=== PATIENT | male | born 1970 | race African-American/Black ===

== ENCOUNTER 2016-07-15 07:52 | Emergency (ER) | payer SELFPAY ==
[2016-07-15] MEDS ORDERED: HYDROCODONE/ACETAMINOPHEN 5-325 MG TABLET PO ONE (09:49)
[2016-07-15] MEDS ORDERED: MORPHINE SULFATE 10 MG/ML INJ IM ONE (09:53)
--- NOTE | 2016-07-15 09:54 | ER Document Report ---
ED General - General Chief Complaint: Breathing Difficulty Stated Complaint: HARD TO BREATH Mode of Arrival: Ambulatory Information source: Patient Notes: 46-year-old male presents with sudden right lower chest pain of one-day duration. Patient admits to shortness of breath difficulty taking a deep breath in. 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 Patient has had similar pains in the past due to work TRAVEL OUTSIDE OF THE [place] IN LAST 30 DAYS: No - HPI Onset: Just prior to arrival Onset/Duration: Sudden Quality of pain: No pain - Related Data Allergies/Adverse Reactions: fluoxetine HCl [From Prozac] Allergy (Verified 07/15/16 07:55) naproxen [Naproxen] Allergy (Verified 07/15/16 07:55) Past Medical History - Social History Smoking Status: Current Every Day Smoker Chew tobacco use (# tins/day): No Frequency of alcohol use: None Drug Abuse: None Family History: Arthritis, CAD, CVA, DM, Hyperlipidemia, Hypertension Patient has suicidal ideation: No Patient has homicidal ideation: No - Past Medical History Cardiac Medical History: Reports: Hx Hypercholesterolemia, Hx Hypertension Pulmonary Medical History: Denies: Hx Asthma, Hx Bronchitis, Hx COPD Neurological Medical History: Denies: Hx Cerebrovascular Accident Endocrine Medical History: Denies: Hx Diabetes Mellitus Type 2 GI Medical History: Denies: Hx Gastritis, Hx Gastroesophageal Reflux Disease Musculoskeltal Medical History: Reports Hx Arthritis, Reports Hx Muscle Spasm, Reports Hx Musculoskeletal Deformity, Reports Hx Musculoskeletal Trauma Psychiatric Medical History: Reports: Hx Depression Past Surgical History: Reports: Hx Orthopedic Surgery - L5-S1 fusion in Feb 2012. - Immunizations Immunizations up to date: Yes Hx Diphtheria, Pertussis, Tetanus Vaccination: Yes - last year Physical Exam - Vital signs Vitals: Temp Pulse Resp BP Pulse Ox 98.2 F 90 18 177/104 H 99 07/15/16 07:57 07/15/16 07:57 07/15/16 07:57 07/15/16 07:57 07/15/16 07:57 Course - Re-evaluation Re-evalutation: 07/15/16 09:53 Patient at this time appears to be in distress, he will be given pain control concern for pneumothorax 07/15/16 13:41 CTA chest was negative as well as x-ray, it appears to be muscle related patient will be discharged home as he is otherwise stable After performing a Medical Screening Examination, I estimate there is LOW risk for INTRACRANIAL HEMORRHAGE, UNSTABLE SPINE FRACTURE, CENTRAL CORD SYNDROME, CAUDA EQUINA, THORACIC AORTIC DISSECTION, PNEUMOTHORAX, PERFORATED BOWEL, RUPTURED ABDOMINAL AORTIC ANEURYSM, ACUTE TENDON RUPTURE, COMPARTMENT SYNDROME, or OPEN FRACTURE, thus I consider the discharge disposition reasonable. Also, there is no evidence or peritonitis, sepsis, or toxicity. The patient and I have discussed the diagnosis and risks, and we agree with discharging home to follow-up with their primary doctor with the understanding that symptoms and presentations can change. We also discussed returning to the Emergency Department immediately if new or worsening symptoms occur. We have discussed the symptoms which are most concerning (e.g., bloody stool, fever, changing or worsening pain, vomiting) that necessitate immediate return. - Vital Signs Vital signs: Temp Pulse Resp BP Pulse Ox 98.1 F 71 20 155/103 H 100 07/15/16 12:35 07/15/16 12:35 07/15/16 12:35 07/15/16 12:35 07/15/16 12:35 - Laboratory Result Diagrams: 07/15/16 11:40 07/15/16 11:40 Laboratory results interpreted by me: 07/15/16 07/15/16 11:40 11:40 WBC 13.9 H RBC 5.64 H Hgb 13.1 L MCV 73 L MCH 23.2 L MCHC 31.8 L RDW 15.5 H Absolute Neutrophils 10.8 H Glucose 74 L - Diagnostic Test Radiology reviewed: Image reviewed, Reports reviewed Discharge - Discharge Clinical Impression: Upper back pain on right side, Shortness of breath Condition: Stable Disposition: HOME, SELF-CARE Additional Instructions: Follow up with your physician tomorrow for further care or return to the ED IMMEDIATELY if symptoms worsen or new concerns occur Prescriptions: Hydrocodone/Acetaminophen [[place] 5-325 mg Tablet] 1 tab PO Q6 #10 tablet
[2016-07-15 12:03] LABS: ABSOLUTE BASOPHILS # (AUTO) 0.1 10^3/uL (0.0-0.2); ABSOLUTE EOSINOPHILS # (AUTO) 0.2 10^3/uL (0.0-0.6); ABSOLUTE LYMPHOCYTES (AUTO) 1.8 10^3/uL (0.5-4.7); ABSOLUTE MONOCYTES (AUTO) 0.9 10^3/uL (0.1-1.4); ABSOLUTE NEUT (AUTO) 10.8 10^3/uL (1.7-8.2); BASOPHILS % (AUTO) 0.8 % (0-2); EOSINOPHILS % (AUTO) 1.6 % (0-6); HEMATOCRIT 41.2 % (37.9-51.0); HEMOGLOBIN 13.1 g/dL (13.5-17.0); HGB HCT DIFFERENCE -1.9; LYMPHOCYTES % (AUTO) 13.2 % (13-45); MEAN CORPUSCULAR HEMOGLOBIN 23.2 pg (27.0-33.4); MEAN CORPUSCULAR HGB CONC 31.8 g/dL (32.0-36.0); MEAN CORPUSCULAR VOLUME 73 fl (80-97); MONOCYTES % (AUTO) 6.8 % (3-13); RED BLOOD COUNT 5.64 10^6/uL (4.35-5.55); RED CELL DISTRIBUTION WIDTH 15.5 % (11.5-14.0); SEGMENTED NEUTROPHILS % (AUTO) 77.6 % (42-78); WHITE BLOOD COUNT 13.9 10^3/uL (4.0-10.5)
[2016-07-15 12:22] LABS: ALANINE AMINOTRANSFERASE 42 U/L (21-72); ALBUMIN 4.2 g/dL (3.5-5.0); ALKALINE PHOSPHATASE 69 U/L (38-126); ANION GAP 13 (5-19); ASPARTATE AMINO TRANSFERASE 23 U/L (17-59); BILIRUBIN,TOTAL 0.7 mg/dL (0.2-1.3); BLOOD UREA NITROGEN 10 mg/dL (7-20); CALCIUM 9.7 mg/dL (8.4-10.2); CARBON DIOXIDE 26 mmol/L (22-30); CHLORIDE 104 mmol/L (98-107); CREATININE RESULT 0.93 mg/dL (0.52-1.25); GLUCOSE 74 mg/dL (75-110); POTASSIUM 4.1 mmol/L (3.6-5.0); SODIUM 143.4 mmol/L (137-145); TOTAL PROTEIN 7.4 g/dL (6.3-8.2)
[2016-07-15 12:39] VITALS: BP 155/103
== END 2016-07-15 13:45 | disposition home or self-care (01) ==
LOC: ER 07:52
DX: M54.6 Pain in thoracic spine (principal); R06.02 Shortness of breath; F17.210 Nicotine dependence, cigarettes, uncomplicated; E78.00 Pure hypercholesterolemia, unspecified; I10 Essential (primary) hypertension
CPT/HCPCS: 99285; 96372; 36415; 85025; 80053; 71020; 71275; J2270

== ENCOUNTER 2017-03-04 08:37 | Emergency (ER) | payer SELFPAY ==
[2017-03-04 08:42] VITALS: BP 151/110
--- NOTE | 2017-03-04 09:26 | ER Document Report ---
HPI - HPI Pain Level: 4 Notes: Patient is a 46-year-old male who presents the ED complaining of right shoulder pain 1 week with increasing pain over the last 4 days. 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 He denies any acute injury. Patient states that he feels like he is gradually getting weaker in the shoulder. The pain is described as an ache, and occasional sharp pain. Patient states that he does have a history of carpal tunnel syndrome in that right wrist. The pain does not radiate otherwise. Patient denies any drug allergies. Patient denies ever having an issue with this shoulder in the past. He has not noticed any swelling or deformity. Denies any headache, fever, head injury, neck pain, URI, sore throat, chest pain, palpitations, syncope, cough, shortness of breath, wheeze, dyspnea, abdominal pain, nausea/vomiting/ diarrhea, dysuria, numbness/tingling, muscle paralysis/weakness, or rash. - ROS Notes: REVIEW OF SYSTEMS: CONSTITUTIONAL : Denies fever, chills, or sweats. Denies recent illness. EENT: Denies eye, ear, throat, or mouth pain or symptoms. Denies nasal or sinus congestion or discharge. Denies throat, tongue, or mouth swelling or difficulty swallowing. CARDIOVASCULAR: Denies chest pain. Denies palpitations or racing or irregular heart beat. Denies ankle edema. RESPIRATORY: Denies cough, cold, or chest congestion. Denies shortness of breath, difficulty breathing, or wheezing. GASTROINTESTINAL: Denies abdominal pain or distention. Denies nausea, vomiting , or diarrhea. Denies blood in vomitus, stools, or per rectum. Denies black, tarry stools. Denies constipation. GENITOURINARY: Denies difficulty urinating, painful urination, burning, frequency, blood in urine, or discharge. MUSCULOSKELETAL: See HPI SKIN: Denies rash, lesions or sores. NEUROLOGICAL: Denies confusion or altered mental status. Denies passing out or loss of consciousness. Denies dizziness or lightheadedness. Denies headache. Denies weakness or paralysis or loss of use of either side. Denies problems with gait or speech. Denies sensory loss, numbness, or tingling. ALL OTHER SYSTEMS REVIEWED AND NEGATIVE. Dictation was performed using [employer] voice recognition software - CARDIOVASCULAR Cardiovascular: DENIES: Chest pain - REPRODUCTIVE Reproductive: DENIES: : - DERM Skin Color: Normal Past Medical History - Social History Smoking Status: Current Every Day Smoker Chew tobacco use (# tins/day): No Frequency of alcohol use: None Drug Abuse: None Family History: Arthritis, CAD, CVA, DM, Hyperlipidemia, Hypertension Patient has suicidal ideation: No Patient has homicidal ideation: No - Past Medical History Cardiac Medical History: Reports: Hx Hypercholesterolemia, Hx Hypertension Pulmonary Medical History: Denies: Hx Asthma, Hx Bronchitis, Hx COPD Neurological Medical History: Denies: Hx Cerebrovascular Accident Endocrine Medical History: Denies: Hx Diabetes Mellitus Type 2 Renal/ Medical History: Denies: Hx Peritoneal Dialysis GI Medical History: Denies: Hx Gastritis, Hx Gastroesophageal Reflux Disease Musculoskeltal Medical History: Reports Hx Arthritis, Reports Hx Muscle Spasm, Reports Hx Musculoskeletal Deformity, Reports Hx Musculoskeletal Trauma Psychiatric Medical History: Reports: Hx Depression Past Surgical History: Reports: Hx Orthopedic Surgery - L5-S1 fusion in Feb 2012. - Immunizations Immunizations up to date: Yes Hx Diphtheria, Pertussis, Tetanus Vaccination: Yes - last year Vertical Provider Document - CONSTITUTIONAL Agree With Documented VS: Yes Notes: PHYSICAL EXAMINATION: GENERAL: Well-appearing, well-nourished and in no acute distress. NECK: Normal range of motion, supple without lymphadenopathy. Non-tender. LUNGS: Breath sounds clear to auscultation bilaterally and equal. No wheezes rales or rhonchi. HEART: Regular rate and rhythm without murmurs, rubs, gallops. Musculoskeletal: Rt shoulder: FROM to passive/active. Strength 5+/5. No obvious swelling, redness, warmth, or deformity noted. No crepitus or bony tenderness. + tenderness elicited at the prox biceps tendon with flexion of elbow. Extremities: No cyanosis, clubbing, or edema b/l. Peripheral pulses 2+. Capillary refill less than 3 seconds. NEUROLOGICAL: Normal speech, normal gait. Normal sensory, motor exams PSYCH: Normal mood, normal affect. SKIN: Warm, Dry, normal turgor, no rashes or lesions noted. - INFECTION CONTROL TRAVEL OUTSIDE OF THE [place] IN LAST 30 DAYS: No - RESPIRATORY O2 Sat by Pulse Oximetry: 100 Course - Re-evaluation Re-evalutation: 03/04/17 09:48 patient is an afebrile, well-hydrated, 46-year-old male who presents the ED complaining of right shoulder pain suspect biceps tendinitis based on H&P today. Vitals are stable. PE otherwise unremarkable for any focal neurological deficits. No imaging warranted today as there is no bony tenderness or issues with range of motion. Patient states that he is allergic to naproxen, but is able to take Advil and ibuprofen without any issues. I will send him home with a prescription for Voltaren gel and a sling to use temporarily when needed. Patient aware to monitor for any signs or symptoms of an allergic reaction while using the medication. Conservative measures otherwise for symptoms. Recheck with your PCM this week. Call orthopedics to schedule an appointment this week. Return to the ED with any worsening/ concerning symptoms otherwise as reviewed discharge. Patient is in agreement. - Vital Signs Vital signs: Temp Pulse Resp BP Pulse Ox 97.5 F 80 18 151/110 H 100 03/04/17 08:37 03/04/17 08:37 03/04/17 08:37 03/04/17 08:37 03/04/17 08:37 Discharge - Discharge Clinical Impression: Right shoulder pain Qualifiers: Chronicity: acute Qualified Code(s): M25.511 - Pain in right shoulder Condition: Stable Disposition: HOME, SELF-CARE Instructions: Ice & Elevation ([facility]), Exercise Program for the Shoulder ([facility]), Temporary Sling ([facility]), Warm Packs ([facility]) Additional Instructions: Rest, Ice, Compression, Elevation Use sling as directed Tylenol/ibuprofen as needed Light stretches daily Strength exercises as able Moist heat and massage may help F/u with your PCP in 2-3 days for a recheck Consider consult(s) with Orthopedics/physical therapy for ongoing/worsening symptoms Return to the ED with any worsening symptoms and/or development of fever, headache, chest pain, palpitations, syncope, shortness of breath, trouble breathing, abdominal pain, n/v/d, muscle weakness/paralysis, numbness/tingling, swelling, redness, or other worsening symptoms that are concerning to you. Prescriptions: Diclofenac Sodium [Voltaren] 4 gm TP QID PRN #100 gel..gm. PRN Reason: Forms: Elevated Blood Pressure Referrals: [facility] [Provider Group] - Follow up as needed [facility] [Provider Group] - [facility] as [facility] - Follow up as needed
== END 2017-03-04 09:48 | disposition home or self-care (01) ==
LOC: ER 08:37
DX: M25.511 Pain in right shoulder (principal); F17.200 Nicotine dependence, unspecified, uncomplicated
CPT/HCPCS: 99283

== ENCOUNTER 2017-08-31 07:49 | Emergency (ER) | payer SELFPAY ==
--- NOTE | 2017-08-31 08:36 | ER Document Report ---
ED Extremity Problem, Upper - General Chief Complaint: Arm Pain Stated Complaint: RIGHT SIDE PAIN Time Seen by Provider: 08/31/17 08:35 Mode of Arrival: Ambulatory Information source: Patient TRAVEL OUTSIDE OF THE [place] IN LAST 30 DAYS: No - HPI Notes: 37-year-old male presents today with complaints of neck and right shoulder pain that is causing numbness and tingling down his arm has been occurring for the last 2 months Patient denies any trauma to his right shoulder, neck or any part of his body. Patient states he has been in [place] for 1 month and just has not had a chance to follow-up. Patient states that he has intermittent sharp pains. Patient denies any [id number] medications to treat this. 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 Reports he has had issues with his shoulder dating back from February 2017. He has never followed up with an desktop support specialist or primary care provider. Denies any weakness in right arm, denies any other area of injury. States he just has tingling in his fingers that comes and goes for the last 2 months. denies any other injuries. Denies fevers, chills, chest pain, shortness of breath, nausea, vomiting, diarrhea, abdominal pain, hematuria,blurred vision, double vision, loss of vision, syncope, headaches, neck pain, weakness, bowel or bladder dysfunction, saddle anesthesia, or rash. Patient reports he forgot to take his blood pressure medication this morning. - Related Data Allergies/Adverse Reactions: fluoxetine HCl [From Prozac] Allergy (Verified 08/31/17 07:50) naproxen [Naproxen] Allergy (Verified 08/31/17 07:50) Past Medical History - General Information source: Patient - Social History Smoking Status: Unknown if Ever Smoked Family History: Arthritis, CAD, CVA, DM, Hyperlipidemia, Hypertension - Past Medical History Cardiac Medical History: Reports: Hx Hypercholesterolemia, Hx Hypertension Pulmonary Medical History: Denies: Hx Asthma, Hx Bronchitis, Hx COPD Neurological Medical History: Denies: Hx Cerebrovascular Accident Endocrine Medical History: Denies: Hx Diabetes Mellitus Type 2 Renal/ Medical History: Denies: Hx Peritoneal Dialysis GI Medical History: Denies: Hx Gastritis, Hx Gastroesophageal Reflux Disease Musculoskeltal Medical History: Reports Hx Arthritis, Reports Hx Muscle Spasm, Reports Hx Musculoskeletal Deformity, Reports Hx Musculoskeletal Trauma Psychiatric Medical History: Reports: Hx Depression Past Surgical History: Reports: Hx Orthopedic Surgery - L5-S1 fusion in Feb 2012. - Immunizations Immunizations up to date: Yes Hx Diphtheria, Pertussis, Tetanus Vaccination: Yes - last year Review of Systems - Review of Systems Constitutional: No symptoms reported EENT: No symptoms reported Cardiovascular: No symptoms reported Respiratory: No symptoms reported Gastrointestinal: No symptoms reported Genitourinary: No symptoms reported Male Genitourinary: No symptoms reported Musculoskeletal: See HPI Skin: No symptoms reported Hematologic/Lymphatic: No symptoms reported Neurological/Psychological: See HPI Physical Exam - Vital signs Vitals: Temp Pulse Resp BP Pulse Ox 98.3 F 82 14 162/108 H 100 08/31/17 07:52 08/31/17 07:52 08/31/17 07:52 08/31/17 07:52 08/31/17 07:52 - Notes Notes: PHYSICAL EXAMINATION: GENERAL: Well-appearing, well-nourished and in no acute distress. HEAD: Atraumatic, normocephalic. EYES: Pupils equal round and reactive to light, extraocular movements intact, sclera anicteric, conjunctiva are normal. ENT: Nares patent, oropharynx clear without exudates. Moist mucous membranes. NECK: Normal range of motion, supple without lymphadenopathy LUNGS: Breath sounds clear to auscultation bilaterally and equal. No wheezes rales or rhonchi. HEART: Regular rate and rhythm without murmurs ABDOMEN: Soft, nontender, nondistended abdomen. No guarding, no rebound. No masses appreciated. Musculoskeletal: Normal range of motion, no pitting or edema. No cyanosis. Negative spurlings test. [employer] + 2 bilaterally and equally. Dtr +2 bilaterally and equally in BUE. Perrla, full eomi. Face symmetrical. No rashes observed. Point tenderness to right paraspinal muscles near C6. No lymphadenopathy. Full APROM with shoulders. TM intact bilaterally. No meningismus. No noted lymphadenopathy. Noted crepitus with APROM in elbow. negative drop arm, neer sign, minor test bilaterally. slightly positive impingement sign all on right No vascular compromise. Neck with full APROM, no cervical spinal tenderness. No tenderness over clavicles or step off noted bilaterally. NEUROLOGICAL: Cranial nerves grossly intact. Normal speech, normal gait. Normal sensory, motor exams PSYCH: Normal mood, normal affect. SKIN: Warm, Dry, normal turgor, no rashes or lesions noted. Full Course - Re-evaluation Re-evalutation: 08/31/17 11:06 Rechecked the patient who is resting comfortably. On re-exam, patient is symptomatically improved. Discussed the results of the cervical and shoulder xray as well as the diagnosis at great length. Discussed the patient will need to follow-up with an desktop support specialist within 1 week. Pressure is elevated however patient did not take his blood pressure medication today. PE otherwise unremarkable for any focal neurological deficits. Imaging showed that he does have degenerative changes in his right shoulder as well as his cervical spine with foraminal stenosis from C3-C4 and C4-C5. Patient was given Toradol here without any issues. Patient states he does take ibuprofen at home. Will also give patient a sling as well as a referral to the desktop support specialist. Patient is aware to monitor for any signs and symptoms of allergic reaction while taking medication. Advised conservative measures otherwise. Discussed the need to return to the ER for any new or worsening sx. Patient understands to take the Rx as directed. All questions answered. Patient comfortable with the decision to go home. Currently low suspicion for ACS, PE, pneumothorax, dissection, pericarditis, sepsis, meningitis, respiratory compromise After performing a Medical Screening Examination, I estimate there is LOW risk for CENTRAL CORD SYNDROME, EPIDURAL MASS LESION, SEVERE SPINAL STENOSIS, ARTERIAL DISSECTION, MENINGITIS, or ACUTE CORONARY SYNDROME, thus I consider the discharge disposition reasonable. I have reevaluated this patient multiple times and no significant life threatening changes are noted. The patient and I have discussed the diagnosis and risks, and we agree with discharging home to follow-up on an outpatient basis with the understanding that symptoms and presentations can change. We also discussed returning to the Emergency Department immediately if new or worsening symptoms occur. We have discussed the symptoms which are most concerning (e.g., saddle anesthesia, urinary or bowel incontinence or retention, changing or worsening pain) that necessitate immediate return. 08/31/17 11:10 - Vital Signs Vital signs: Temp Pulse Resp BP Pulse Ox 98.3 F 82 14 162/108 H 100 08/31/17 07:52 08/31/17 07:52 08/31/17 07:52 08/31/17 07:52 08/31/17 07:52 Discharge - Discharge Clinical Impression: Impingement syndrome of right shoulder, Cervical spinal stenosis Condition: Good Disposition: HOME, SELF-CARE Instructions: Shoulder Injury ([facility]), Exercise Program for the Shoulder ([facility]) Additional Instructions: Shoulder Injury You have injured your shoulder. This usually results from stretching or tearing of the tendons during trauma. Time and protection are required in order to heal properly. Many injuries are quite disabling, and should be taken seriously. Initial treatment includes cold packs and a sling to rest the shoulder. The physician has assessed the seriousness of your injury, and has outlined a treatment plan. Understand that this treatment may change, depending on how you progress. If a re-examination was recommended, it is important that you follow up as instructed. Some shoulder injuries (such as partial tear of the rotator cuff) are only suspected after you've failed to improve. Call us if there's severe pain, numbness, or loss of function. Please follow up with the Orthopedics [facility] [address] [place] [phone] Return immediately for any new or worsening symptoms. Follow up with primary care provider, call tomorrow to make followup appointment. Forms: Elevated Blood Pressure, Return to Work Referrals: THU CASTRO MD [ACTIVE STAFF] - Follow up in 1 week MAGDA HERR MD [COMMUNITY BASED STAFF] - Follow up in 3-5 days
[2017-08-31] MEDS ORDERED: KETOROLAC TROMETHAMINE 60 MG/2 ML SDV IM ONE (09:26)
--- NOTE | 2017-08-31 10:06 | RADIOLOGY REPORT (SQ) ---
EXAM DESCRIPTION: CERV SP 4 OR 5 VIEWS COMPLETED DATE/TIME: 08/31/2017 9:51 am REASON FOR STUDY: cervical and right shoulder pain with n/t COMPARISON: 11/16/2007 NUMBER OF VIEWS: Five views. TECHNIQUE: AP, lateral, obliques and odontoid radiographic images acquired of the cervical spine. LIMITATIONS: None. FINDINGS: MINERALIZATION: Normal. ALIGNMENT: Anatomic. VERTEBRAE: Vertebral bodies of normal height. DISCS: Diffuse cervical spine disc space loss of height with mild anterior and posterior osteophyte f ormation. FORAMINA: No significant left foraminal narrowing. Moderate to high-grade right C3-4 and C4-5 forami nal stenosis from facet and uncovertebral hypertrophy LATERAL AND POSTERIOR ELEMENTS: Facets, lateral masses and spinous processes without significant find ings. HARDWARE: None in the spine. SOFT TISSUES: No masses or calcifications. Lung apices clear. OTHER: No other significant finding. IMPRESSION: Diffuse degenerative changes. Right-sided foraminal stenosis at C3-4 and C4-5 TECHNICAL DOCUMENTATION: JOB ID: [id number] [employer]- All Rights Reserved
--- NOTE | 2017-08-31 10:08 | RADIOLOGY REPORT (SQ) ---
EXAM DESCRIPTION: SHOULDER RIGHT 2 OR MORE VIEWS COMPLETED DATE/TIME: 08/31/2017 9:51 am REASON FOR STUDY: cervical and right shoulder pain with n/t COMPARISON: None. NUMBER OF VIEWS: 01/19/2007 Three views. TECHNIQUE: Internal rotation, external rotation, and Y view images acquired of the right shoulder. LIMITATIONS: None. FINDINGS: MINERALIZATION: Normal. BONES: No acute bony changes. No worrisome bone lesions. Small degenerative spur at the level of th e greater tuberosity. JOINTS: No dislocation. VISUALIZED LUNGS AND RIBS: No pneumothorax. No rib fracture. SOFT TISSUES: No radiopaque foreign body. OTHER: No other significant finding. IMPRESSION: Very small degenerative spur at the level of the greater tuberosity. Study otherwise no rmal. TECHNICAL DOCUMENTATION: JOB ID: [id number] [employer]- All Rights Reserved
[2017-08-31] MEDS ORDERED: LISINOPRIL 10 MG TABLET PO ONE (11:03)
[2017-08-31 11:13] VITALS: BP 168/104
== END 2017-08-31 11:21 | disposition home or self-care (01) ==
LOC: ER 07:49
DX: M75.41 Impingement syndrome of right shoulder (principal); M48.02 Spinal stenosis, cervical region; M54.2 Cervicalgia; M25.511 Pain in right shoulder; R20.0 Anesthesia of skin
CPT/HCPCS: 99283; 96372; 72050; 73030; J1885

== ENCOUNTER 2018-07-07 02:29 | Emergency (ER) | payer SELFPAY ==
[2018-07-07] MEDS ORDERED: NORMAL SALINE 1000 ML 1,000 ML IV ONE ×2 (02:49→03:55)
[2018-07-07] MEDS ORDERED: ONDANSETRON HCL INJ/PF 4 MG/2 ML SDV IV ONE (02:49)
[2018-07-07] MEDS ORDERED: DIPHENHYDRAMINE HCL 50 MG/ML VIAL IV ONE (02:51)
--- NOTE | 2018-07-07 02:57 | ER Document Report ---
ED GI/ - General Chief Complaint: Nausea/Vomiting/Diarrhea Stated Complaint: VOMITTING Time Seen by Provider: 07/07/18 02:46 Notes: Patient is a 48-year-old male that comes to the emergency department for chief complaint of vomiting and diarrhea. He states symptoms have been persistent since they started a few hours ago, he states that he ate [employer] and it within 2 hours she started having symptoms. Denies fever or chills. He denies any obvious sick contacts. He denies recent antibiotics or recent travel. He reports a past medical history of hypertension and lumbar surgery. He smokes, drinks alcohol occasionally, denies recreational drugs. TRAVEL OUTSIDE OF THE [place] IN LAST 30 DAYS: No - Related Data Allergies/Adverse Reactions: fluoxetine HCl [From Prozac] Allergy (Verified 07/07/18 02:30) naproxen [Naproxen] Allergy (Verified 07/07/18 02:30) Past Medical History - General Information source: Patient - Social History Smoking Status: Current Every Day Smoker Smoking Education Provided: Yes - <3 min Frequency of alcohol use: Occasional Drug Abuse: Marijuana Lives with: Family Family History: Arthritis, CAD, CVA, DM, Hyperlipidemia, Hypertension - Past Medical History Cardiac Medical History: Reports: Hx Hypercholesterolemia, Hx Hypertension Pulmonary Medical History: Denies: Hx Asthma, Hx Bronchitis, Hx COPD Neurological Medical History: Denies: Hx Cerebrovascular Accident Endocrine Medical History: Denies: Hx Diabetes Mellitus Type 2 Renal/ Medical History: Denies: Hx Peritoneal Dialysis GI Medical History: Denies: Hx Gastritis, Hx Gastroesophageal Reflux Disease Musculoskeletal Medical History: Reports Hx Arthritis, Reports Hx Muscle Spasm, Reports Hx Musculoskeletal Deformity, Reports Hx Musculoskeletal Trauma Psychiatric Medical History: Reports: Hx Depression Past Surgical History: Reports: Hx Orthopedic Surgery - L5-S1 fusion in Feb 2012. - Immunizations Immunizations up to date: Yes Hx Diphtheria, Pertussis, Tetanus Vaccination: Yes - last year Review of Systems - Review of Systems Constitutional: No symptoms reported EENT: No symptoms reported Cardiovascular: No symptoms reported Respiratory: No symptoms reported Gastrointestinal: See HPI Genitourinary: No symptoms reported Male Genitourinary: No symptoms reported Musculoskeletal: No symptoms reported Skin: No symptoms reported Hematologic/Lymphatic: No symptoms reported Neurological/Psychological: No symptoms reported Physical Exam - Vital signs Vitals: Temp Pulse Resp BP Pulse Ox 97.5 F 88 20 166/103 H 99 07/07/18 02:34 07/07/18 02:34 07/07/18 02:34 07/07/18 02:34 07/07/18 02:34 - Notes Notes: GENERAL: Patient is restless on the bed but he is alert HEAD: Normocephalic, atraumatic. EYES: Pupils equal, round, and reactive to light. Extraocular movements intact. ENT: Oral mucosa moist, tongue midline. Oropharynx unremarkable. Airway patent. Nares patent, no nasal septal hematoma, TM's intact. NECK: Full range of motion. Supple. Trachea midline. LUNGS: Clear to auscultation bilaterally, no wheezes, rales, or rhonchi. No respiratory distress. HEART: Regular rate and rhythm. No murmur ABDOMEN: Minimal generalized upper abdominal tenderness without guarding, normal abdominal exam otherwise, accelerated bowel sounds. GENITOURINARY: Deferred EXTREMITIES: Moves all 4 extremities spontaneously. No edema, normal radial and dorsalis pedis pulses bilaterally. No cyanosis. BACK: no cervical, thoracic, lumbar midline tenderness. No saddle anesthesia, normal distal neurovascular exam. NEUROLOGICAL: Alert and oriented x3. Normal speech. [cranial nerves II through XII grossly intact]. PSYCH: Normal affect, normal mood. SKIN: Warm, dry, normal turgor. No rashes or lesions noted. Course - Re-evaluation Re-evalutation: Patient on patient's initial reported symptoms I suspected possible toxic ingestion versus viral illness. Patient was given IV fluids, nausea medication, hydration. CMP unremarkable. Lipase unremarkable. Vital signs show mild hypertension but otherwise unremarkable. Patient was sleeping peacefully on reevaluation. He tolerated Pepcid without difficulty. Discussed home medications, recommendations, return precautions. Patient suddenly vomited again. Patient is now telling me that he does smoke marijuana daily, he states he has never had this problem before in the past. I do suspect he has cyclic vomiting syndrome. Patient will be given Haldol, reassessed with p.o. trial. After Haldol patient reassessed and much improved. Tolerated drinking fluids without any difficulty. Discussed details, follow-up, return precautions. Patient states understanding and agreement. - Vital Signs Vital signs: Temp Pulse Resp BP Pulse Ox 97.7 F 70 13 159/101 H 99 07/07/18 06:42 07/07/18 06:42 07/07/18 06:42 07/07/18 06:42 07/07/18 06:42 - Laboratory Result Diagrams: 07/07/18 03:13 Laboratory results interpreted by me: 07/07/18 07/07/18 03:13 03:13 Chloride 110 H Glucose 120 H Lipase 300.9 H Discharge - Discharge Clinical Impression: Abdominal pain Qualifiers: Abdominal location: unspecified location Qualified Code(s): R10.9 - Unspecified abdominal pain Vomiting Qualifiers: Vomiting type: unspecified Vomiting Intractability: non-intractable Nausea presence: with nausea Qualified Code(s): R11.2 - Nausea with vomiting, unspecified Cyclic vomiting syndrome Qualifiers: Vomiting Intractability: non-intractable Nausea presence: with nausea Qualified Code(s): G43.A0 - Cyclical vomiting, not intractable Condition: Stable Disposition: HOME, SELF-CARE Additional Instructions: You have been treated for dehydration and vomiting. Your evaluation is most consistent with cyclic vomiting syndrome. This can be caused by frequent use of marijuana. Recommend that you stop using marijuana as a result or your symptoms will continue to recur. Take the medications as prescribed, start with clear fluids, progress to bland diet and then normal diet as tolerated. Follow-up with primary care. Return if you worsen including severe abdominal pain, uncontrolled vomiting, vomiting blood, fever, or any other concerning or worsening symptoms. Prescriptions: Famotidine [Pepcid 20 mg Tablet] 20 mg PO BID #12 tablet Promethazine HCl [Phenergan 25 mg Tablet] 25 mg PO Q6H PRN #20 tablet PRN Reason:
[2018-07-07] MEDS ORDERED: PROMETHAZINE HCL INJ 25 MG/1 ML VIAL IM ONE (03:24)
[2018-07-07 03:34] LABS: ALANINE AMINOTRANSFERASE 28 U/L (21-72); ALBUMIN 3.9 g/dL (3.5-5.0); ALKALINE PHOSPHATASE 70 U/L (38-126); ANION GAP 10 (5-19); ASPARTATE AMINO TRANSFERASE 21 U/L (17-59); BILIRUBIN,DIRECT 0.2 mg/dL (0.0-0.4); BILIRUBIN,TOTAL 0.3 mg/dL (0.2-1.3); BLOOD UREA NITROGEN 8 mg/dL (7-20); CALCIUM 9.3 mg/dL (8.4-10.2); CARBON DIOXIDE 23 mmol/L (22-30); CHLORIDE 110 mmol/L (98-107); GLUCOSE 120 mg/dL (75-110); POTASSIUM 3.7 mmol/L (3.6-5.0); SODIUM 142.5 mmol/L (137-145); TOTAL PROTEIN 6.6 g/dL (6.3-8.2)
[2018-07-07] MEDS ORDERED: MORPHINE SULFATE 10 MG/ML INJ IV ONE (03:41)
[2018-07-07] MEDS ORDERED: FAMOTIDINE 20 MG TABLET PO ONE (04:07)
[2018-07-07] MEDS ORDERED: HYDROCODONE/ACETAMINOPHEN 5-325 MG (6 TAB/ER DISP) PO PRN (04:57)
[2018-07-07] MEDS ORDERED: ONDANSETRON ODT 4 MG TAB (6 TAB/ER DISP) PO PRN (04:57)
[2018-07-07] MEDS ORDERED: HALOPERIDOL LACTATE INJ 5 MG/1 ML VIAL IM ONE (05:08)
[2018-07-07 06:44] VITALS: BP 159/101
== END 2018-07-07 07:03 | disposition home or self-care (01) ==
LOC: ER 02:29
DX: G43.A0 Cyclical vomiting, in migraine, not intractable (principal); F12.10 Cannabis abuse, uncomplicated; R19.7 Diarrhea, unspecified; R10.9 Unspecified abdominal pain; I10 Essential (primary) hypertension; Z88.8 Allergy status to other drugs, medicaments and biological substances; F17.200 Nicotine dependence, unspecified, uncomplicated
CPT/HCPCS: 99284; 96372; 96361; 96374; 96375; 36415; 83690; 80053; J1200; J1630; J2270; J2550; J2405; J7030

== ENCOUNTER 2018-08-03 16:03 | Emergency (ER) | payer SELFPAY ==
[2018-08-03] MEDS ORDERED: NORMAL SALINE 1000 ML 1,000 ML IV ONE (17:09)
[2018-08-03] MEDS ORDERED: PANTOPRAZOLE SODIUM 40 MG VIAL IV ONE (17:09)
[2018-08-03] MEDS ORDERED: ONDANSETRON HCL INJ/PF 4 MG/2 ML SDV IV ONE (17:09)
[2018-08-03] MEDS ORDERED: MORPHINE SULFATE 10 MG/ML INJ IV ONE (17:10)
[2018-08-03 17:47] LABS: ABSOLUTE BASOPHILS # (AUTO) 0.1 10^3/uL (0.0-0.2); ABSOLUTE EOSINOPHILS # (AUTO) 0.1 10^3/uL (0.0-0.6); ABSOLUTE NEUT (AUTO) 8.9 10^3/uL (1.7-8.2); HEMOGLOBIN 12.4 g/dL (13.5-17.0); TOTAL CELLS COUNTED % (AUTO) 100 %
[2018-08-03 17:53] LABS: ABSOLUTE LYMPHOCYTES (AUTO) 1.5 10^3/uL (0.5-4.7); ABSOLUTE MONOCYTES (AUTO) 0.6 10^3/uL (0.1-1.4); BASOPHILS % (AUTO) 0.5 % (0-2); EOSINOPHILS % (AUTO) 0.7 % (0-6); HEMATOCRIT 38.6 % (37.9-51.0); LYMPHOCYTES % (AUTO) 13.8 % (13-45); MEAN CORPUSCULAR HEMOGLOBIN 23.4 pg (27.0-33.4); MEAN CORPUSCULAR HGB CONC 32.1 g/dL (32.0-36.0); MEAN CORPUSCULAR VOLUME 73 fl (80-97); MONOCYTES % (AUTO) 5.4 % (3-13); PLATELET COUNT 340 10^3/uL (150-450); RED BLOOD COUNT 5.29 10^6/uL (4.35-5.55); RED CELL DISTRIBUTION WIDTH 15.6 % (11.5-14.0); SEGMENTED NEUTROPHILS % (AUTO) 79.6 % (42-78); WHITE BLOOD COUNT 11.2 10^3/uL (4.0-10.5)
[2018-08-03 18:07] LABS: ALANINE AMINOTRANSFERASE 17 U/L (21-72); ALBUMIN 4.5 g/dL (3.5-5.0); ALKALINE PHOSPHATASE 77 U/L (38-126); ANION GAP 8 (5-19); ASPARTATE AMINO TRANSFERASE 22 U/L (17-59); BILIRUBIN,DIRECT 0.3 mg/dL (0.0-0.4); BILIRUBIN,TOTAL 0.9 mg/dL (0.2-1.3); BLOOD UREA NITROGEN 10 mg/dL (7-20); CALCIUM 9.6 mg/dL (8.4-10.2); CARBON DIOXIDE 25 mmol/L (22-30); CHLORIDE 109 mmol/L (98-107); GLUCOSE 108 mg/dL (75-110); POTASSIUM 3.8 mmol/L (3.6-5.0); SODIUM 141.9 mmol/L (137-145); TOTAL PROTEIN 7.5 g/dL (6.3-8.2)
--- NOTE | 2018-08-03 18:22 | ER Document Report ---
ED General - General Chief Complaint: Abdominal Pain Stated Complaint: ABDOMINAL PAIN Time Seen by Provider: 08/03/18 17:04 Primary Care Provider: NEGRITO MARTINEZ MD [ACTIVE STAFF] - Follow up in 3-5 days Notes: Patient is a 48-year-old male that presents to the emergency department for chief complaint of epigastric and left upper quadrant abdominal pain. Patient states that this pain started yesterday and got progressively worse over the period of time he said several episodes of nausea and vomiting, but denies jones ving any diarrhea. Denies having any dysuria, hematuria, testicular pain. He currently rates his pain as a 9 out of 10 describes as an aching sensation, that is leading to his nausea and vomiting. He has had several episodes today. Denies any history of abdominal surgeries, denies any fevers, chills, night sweats, chest pain or shortness of breath associated with this. Past Medical History: Hypertension Past Surgical History: Back surgery Social History: Admits to smoking cigarettes, denies alcohol or drug use. Family History: Reviewed and noncontributory for presenting illness Allergies: Reviewed, see documented allergy list. REVIEW OF SYSTEMS: Other than noted above, the 12 point review of systems was reviewed with the patient and were negative, all pertinent findings are included in the HPI. PHYSICAL EXAMINATION: Vital signs reviewed, nursing noted reviewed. GENERAL: Well-appearing, well-nourished and appears to be in pain HEAD: Atraumatic, normocephalic. EYES: Eyes appear normal, extraocular movements intact, sclera anicteric, conjunctiva are normal. ENT: nares patent, oropharynx clear without exudates. Moist mucous membranes. NECK: Normal range of motion, supple without lymphadenopathy LUNGS: Breath sounds clear to auscultation bilaterally and equal. No wheezes rales or rhonchi. HEART: Regular rate and rhythm without murmurs ABDOMEN: Soft, , normoactive bowel sounds. No rebound, guarding, or rigidity. No masses appreciated. EXTREMITIES: Nontender, good range of motion, no pitting or edema. NEUROLOGICAL: No focal neurological deficits. Moves all extremities spontaneously Motor and sensory grossly intact on exam. PSYCH: Normal mood, normal affect. SKIN: Warm, Dry, normal turgor, no rashes or lesions noted on exposed skin TRAVEL OUTSIDE OF THE [place] IN LAST 30 DAYS: No - Related Data Allergies/Adverse Reactions: fluoxetine HCl [From Prozac] Allergy (Verified 08/03/18 16:05) naproxen [Naproxen] Allergy (Verified 08/03/18 16:05) Past Medical History - Social History Smoking Status: Current Every Day Smoker Frequency of alcohol use: Occasional Drug Abuse: Marijuana Family History: Arthritis, CAD, CVA, DM, Hyperlipidemia, Hypertension Patient has suicidal ideation: No Patient has homicidal ideation: No - Past Medical History Cardiac Medical History: Reports: Hx Hypercholesterolemia, Hx Hypertension Pulmonary Medical History: Denies: Hx Asthma, Hx Bronchitis, Hx COPD Neurological Medical History: Denies: Hx Cerebrovascular Accident Endocrine Medical History: Denies: Hx Diabetes Mellitus Type 2 Renal/ Medical History: Denies: Hx Peritoneal Dialysis GI Medical History: Denies: Hx Gastritis, Hx Gastroesophageal Reflux Disease Musculoskeletal Medical History: Reports Hx Arthritis, Reports Hx Muscle Spasm, Reports Hx Musculoskeletal Deformity, Reports Hx Musculoskeletal Trauma Psychiatric Medical History: Reports: Hx Depression Past Surgical History: Reports: Hx Orthopedic Surgery - L5-S1 fusion in Feb 2012. - Immunizations Immunizations up to date: Yes Hx Diphtheria, Pertussis, Tetanus Vaccination: Yes - last year Physical Exam - Vital signs Vitals: Temp Pulse Resp BP Pulse Ox 98.2 F 72 20 170/101 H 100 08/03/18 16:13 08/03/18 16:13 08/03/18 16:13 08/03/18 16:13 08/03/18 16:13 Course - Re-evaluation Re-evalutation: Patient seen and examined vital signs reviewed. Laboratory data and imaging were ordered as appropriate for the patient's presenting symptoms and complaint, with consideration of any critical or life threatening conditions that may be associated with their obtained history and exam as noted above. Patient was treated with IV fluid, morphine and Zofran Results were reviewed when available and demonstrated mild leukocytosis, likely secondary to vomiting, lipase normal, LFTs and alk phos normal, we did obtain a right upper quadrant ultrasound, that demonstrated mild heterogeneous pancreas, otherwise unremarkable. Patient's lipase was normal, unlikely acute pancr eatitis. The patient was re-evaluated and was still having some pain nausea was improved, I did give the patient IV Reglan, and a low-dose of Dilaudid to help with his pain, additionally he was given Protonix IV. Evaluation was most consistent with epigastric and left upper quadrant abdominal pain, possible gastritis versus peptic ulcer disease, without evidence of hemorrhage or bleeding ulcer. Will discharge the patient home with a prescription for omeprazole, advised to avoid NSAIDs, and given Zofran dispense pack. Results were discussed with the patient at this point, after careful cons ideration I feel that that patient can be discharged from the emergency department, the patient was educated treatments and reasons to return to the emergency department based on their presumed diagnosis as noted above, they were advised to followup with a primary care physician in 2-3 days. Patient was agreeable to plan of care. *Note is created using voice recognition software and may contain spelling, syntax or grammatical errors. Laboratory 08/03/18 08/03/18 08/03/18 17:26 17:26 17:26 WBC 11.2 H RBC 5.29 Hgb 12.4 L Hct 38.6 MCV 73 L MCH 23.4 L MCHC 32.1 RDW 15.6 H Plt Count 340 Seg Neutrophils % 79.6 H Lymphocytes % 13.8 Monocytes % 5.4 Eosinophils % 0.7 Basophils % 0.5 Absolute Neutrophils 8.9 H Absolute Lymphocytes 1.5 Absolute Monocytes 0.6 Absolute Eosinophils 0.1 Absolute Basophils 0.1 Sodium 141.9 Potassium 3.8 Chloride 109 H Carbon Dioxide 25 Anion Gap 8 BUN 10 Creatinine 0.88 Est GFR ( Amer) > 60 Est GFR (Non-Af Amer) > 60 Glucose 108 Calcium 9.6 Total Bilirubin 0.9 Direct Bilirubin 0.3 Neonat Total Bilirubin Not Reportable Neonat Direct Bilirubin Not Reportable Neonat Indirect Bili Not Reportable AST 22 ALT 17 L Alkaline Phosphatase 77 Total Protein 7.5 Albumin 4.5 Lipase 155.2 Abdomen Ultrasound 08/03/18 17:10 IMPRESSION: The study is essentially normal. The pancreas is slightly het erogeneous. Is there any clinical evidence of pancreatitis? - Vital Signs Vital signs: Temp Pulse Resp BP Pulse Ox 98.2 F 72 20 170/101 H 100 08/03/18 16:13 08/03/18 16:13 08/03/18 16:13 08/03/18 16:13 08/03/18 16:13 - Laboratory Result Diagrams: 08/03/18 17:26 08/03/18 17:26 Laboratory results interpreted by me: 08/03/18 08/03/18 08/03/18 17:26 17:26 18:23 WBC 11.2 H Hgb 12.4 L MCV 73 L MCH 23.4 L RDW 15.6 H Seg Neutrophils % 79.6 H Absolute Neutrophils 8.9 H Chloride 109 H ALT 17 L Urine Protein 30 H Urine Ketones 20 H - EKG Interpretation by Me Additional EKG results interpreted by me: EKG demonstrates sinus bradycardia with a ventricular rate of 56 bpm, normal axis, normal intervals, no evidence of acute ischemia on this EKG. No prior for comparison. Discharge - Discharge Clinical Impression: Abdominal pain Qualifiers: Abdominal location: unspecified location Qualified Code(s): R10.9 - Unspecified abdominal pain Condition: Stable Disposition: HOME, SELF-CARE Instructions: Abdominal Pain ([facility]) Additional Instructions: Please return to the emergency department if you have any worsening, or concern of your symptoms. Please return to the emergency department if you develop chest pain, difficulty breathing, severe abdominal pain, or ongoing vomiting. Please follow-up with your primary care physician in 2-3 days and any other recommended physicians. If prescribed, take all medications as directed. If you have any questions or concerns do not hesitate to return the emergency department for evaluation. Please take the Zofran dispense from the emergency department, every 8 hours as needed for nausea and vomiting. Please take the omeprazole that is prescribed, and avoid anti-inflammatory medications such as Aleve, naproxen, ibuprofen, Motrin, or Advil as these may worsen your symptoms, I would encourage you to stop smoking, and to avoid caffeine as well. Follow-up with a vascular specialists. Prescriptions: Omeprazole 40 mg PO DAILY #20 capsule. Referrals: NEGRITO MARTINEZ MD [ACTIVE STAFF] - Follow up in 3-5 days
--- NOTE | 2018-08-03 18:28 | RADIOLOGY REPORT (SQ) ---
EXAM DESCRIPTION: U/S ABDOMEN LIMITED W/O DOP COMPLETED DATE/TIME: 08/03/2018 6:16 pm REASON FOR STUDY: epigastric, ruq pain COMPARISON: None. TECHNIQUE: Dynamic and static grayscale images acquired of the abdomen and recorded on PACS. Additio nadine selected color Doppler and spectral images recorded. LIMITATIONS: None. FINDINGS: PANCREAS: Slightly heterogeneous. No mass is seen. LIVER: No masses. Echotexture normal. LIVER VASCULATURE: Normal directional flow of the main portal vein and hepatic veins. GALLBLADDER: No stones. Normal wall thickness. No pericholecystic fluid. ULTRASOUND-DETECTED CASTILLO'S SIGN: Negative. INTRAHEPATIC DUCTS AND COMMON DUCT: CBD and intrahepatic ducts normal caliber. No filling defects. INFERIOR VENA CAVA: Normal flow. AORTA: No aneurysm. RIGHT KIDNEY: Normal size, 10.4 cm. Normal echogenicity. No solid or suspicious masses. No hydroneph rosis. No calcifications. PERITONEAL AND RIGHT PLEURAL SPACE: No ascites or effusions. OTHER: No other significant findings. IMPRESSION: The study is essentially normal. The pancreas is slightly heterogeneous. Is there any clinical evidence of pancreatitis? TECHNICAL DOCUMENTATION: JOB ID: [id number] [email or web address]- All Rights Reserved Reading location - IP/workstation name: ANA MARIA
[2018-08-03] MEDS ORDERED: METOCLOPRAMIDE HCL INJ/PF 10 MG/2 ML SDV IV ONE (18:40)
[2018-08-03] MEDS ORDERED: HYDROMORPHONE HCL INJ/PF 2 MG/ML AMPULE IV ONE (18:41)
[2018-08-03 18:57] LABS: AMORPHOUS SEDIMENT,URINE 1+ /HPF; APPEARANCE,URINE CLOUDY; BILIRUBIN,URINE NEGATIVE (NEGATIVE); COLOR,URINE YELLOW; GLUCOSE, URINE NEGATIVE (NEGATIVE); KETONES,URINE 20 mg/dL (NEGATIVE); LEUKOCYTE ESTERASE,URINE NEGATIVE (NEGATIVE); NITRITE,URINE NEGATIVE (NEGATIVE); PROTEIN,URINE 30 mg/dL (NEGATIVE); URINE SPECIFIC GRAVITY 1.016; UROBILINOGEN,URINE NEGATIVE mg/dL (<2.0)
[2018-08-03] MEDS ORDERED: ONDANSETRON ODT 4 MG TAB (6 TAB/ER DISP) PO PRN (18:57)
[2018-08-03] MEDS ORDERED: HYDRALAZINE HCL INJ/PF 20 MG/1 ML SDV IV ONE (19:06)
[2018-08-03 19:46] VITALS: BP 159/100
--- NOTE | 2018-08-04 08:05 | EKG REPORT ---
SEVERITY:- ABNORMAL ECG - SINUS RHYTHM CONSIDER LEFT VENTRICULAR HYPERTROPHY : Confirmed by: Jaqui Gonzales MD 04-Aug-2018 08:04:18
== END 2018-08-03 19:50 | disposition home or self-care (01) ==
LOC: ER 16:03
DX: R10.13 Epigastric pain (principal); R10.12 Left upper quadrant pain; R11.2 Nausea with vomiting, unspecified; R00.1 Bradycardia, unspecified; I10 Essential (primary) hypertension; F17.210 Nicotine dependence, cigarettes, uncomplicated; Z88.8 Allergy status to other drugs, medicaments and biological substances
CPT/HCPCS: 93005; 99284; 96361; 96374; 96375; 36415; 83690; 85025; 80053; 81001; 76705; 93010; J0360; J2765; J2270; J1170; S0164; J2405; J7030

== ENCOUNTER 2018-08-04 07:57 | Emergency (ER) | payer SELFPAY ==
--- NOTE | 2018-08-04 08:08 | ER Document Report ---
ED General - General Chief Complaint: emesis Stated Complaint: VOMITING Time Seen by Provider: 08/04/18 08:07 Primary Care Provider: LAURA LUCIO MD [ACTIVE STAFF] - Follow up in 3-5 days EDUIN NEWSOME DO [NO LOCAL MD] - Follow up tomorrow Mode of Arrival: Ambulatory Information source: Patient TRAVEL OUTSIDE OF THE [place] IN LAST 30 DAYS: No - HPI Notes: 3-year-old male with a history of hypertension and acid reflux presents to the ED for complaints of nausea vomiting with abdominal pain that comes and goes for the last 3 days, was seen in the emergency room yesterday, labs and abdominal ultrasound were unremarkable. Patient was sent home with Zofran. Patient states Zofran is not helping at this point. Patient did not take his blood pressure medication today. Reports generalized abdominal pain denies radiation of pain. Denies any new medications travel or foods. Has been drinking decreased eating. Denies fevers, chills, chest pain,palpitations, shortness of breath, dyspnea, nausea, vomiting, diarrhea, abdominal pain, hematuria,blurred vision, double vision, loss of vision, speech changes, LH, dizziness, syncope, headaches, wheezing, ST, URI, neck pain, weakness, bowel or bladder dysfunction, saddle anesthesia, numbness or tingling in bilateral upper or lower extremities equally, muscle paralysis, weakness in bilateral upper or lower extremities equally or rash - Related Data Allergies/Adverse Reactions: fluoxetine HCl [From Prozac] Allergy (Verified 08/03/18 16:05) naproxen [Naproxen] Allergy (Verified 08/03/18 16:05) Past Medical History - General Information source: Patient - Social History Smoking Status: Current Every Day Smoker Family History: Reviewed & Not Pertinent, Arthritis, CAD, CVA, DM, Hyperlipide angel, Hypertension - Past Medical History Cardiac Medical History: Reports: Hx Hypercholesterolemia, Hx Hypertension Pulmonary Medical History: Denies: Hx Asthma, Hx Bronchitis, Hx COPD Neurological Medical History: Denies: Hx Cerebrovascular Accident Endocrine Medical History: Denies: Hx Diabetes Mellitus Type 2 Renal/ Medical History: Denies: Hx Peritoneal Dialysis GI Medical History: Denies: Hx Gastritis, Hx Gastroesophageal Reflux Disease Musculoskeletal Medical History: Reports Hx Arthritis, Reports Hx Muscle Spasm, Reports Hx Musculoskeletal Deformity, Reports Hx Musculoskeletal Trauma Psychiatric Medical History: Reports: Hx Depression Past Surgical History: Reports: Hx Orthopedic Surgery - L5-S1 fusion in Feb 2012. - Immunizations Immunizations up to date: Yes Hx Diphtheria, Pertussis, Tetanus Vaccination: Yes - last year Review of Systems - Review of Systems Constitutional: See HPI EENT: No symptoms reported Cardiovascular: No symptoms reported Respiratory: No symptoms reported Gastrointestinal: See HPI Genitourinary: No symptoms reported Male Genitourinary: No symptoms reported Musculoskeletal: No symptoms reported Skin: No symptoms reported Hematologic/Lymphatic: No symptoms reported Neurological/Psychological: No symptoms reported Physical Exam - Vital signs Vitals: Temp Pulse Resp BP Pulse Ox 98.2 F 63 18 161/96 H 100 08/04/18 08:00 08/04/18 08:00 08/04/18 08:00 08/04/18 08:00 08/04/18 08:00 - Notes Notes: PHYSICAL EXAMINATION: GENERAL: Well-appearing, well-nourished and in no acute distress. HEAD: Atraumatic, normocephalic. EYES: Pupils equal round and reactive to light, extraocular movements intact, sclera anicteric, conjunctiva are normal. ENT: Nares patent, oropharynx clear without exudates. Moist mucous membranes. NECK: Normal range of motion, supple without lymphadenopathy LUNGS: Breath sounds clear to auscultation bilaterally and equal. No wheezes rales or rhonchi. HEART: Regular rate and rhythm without murmurs ABDOMEN: Soft, nontender, generalized abdominal pain tenderness on palpation with noted grimacing in epigastric area. No guarding, no rebound. No masses appreciated. CVA tenderness on palpation bilaterally Musculoskeletal: Normal range of motion, no pitting or edema. No cyanosis. NEUROLOGICAL: Cranial nerves grossly intact. Normal speech, normal gait. Julienne l sensory, motor exams PSYCH: Normal mood, normal affect. SKIN: Warm, Dry, normal turgor, no rashes or lesions noted. Course - Re-evaluation Re-evalutation: 08/04/18 13:3 40-year-old male afebrile with slightly hypertensive and in no distress presents to the ED for evaluation of nausea vomiting with generalized abdominal pain. Initial EKG was reviewed by Tomeka Gomez, supervising attending with concern of ST segment, as her repeat EKG which appeared to be normal, no STEMI no acute findings with also comparison to yesterday's EKG. Troponins negative x2 . Heart score less than 3. Noted leukocytosis of 16, CMP negative for hepatic renal dysfunction, lipase normal, CT abdomen pelvis negative for any acute findings, patient likely has gastritis, states after IV fluids Phenergan morphine patient states that he feels much better reports he has been around sick contacts. I suspect this is likely gastritis, case has been reviewed with laboratory, diagnostic as well as clinical pertinent findings with supervising attending, Tomeka Gomez MD. she do not feel the patient required admission, can follow-up with transcriptionist, advised to start patient on Protonix and if symptoms become worse to return to the emergency room immediately. Patient given lisinopril due to vomiting his blood pressure medications morning. Lipase within normal limits, patient given oral Protonix as well as Phenergan. Advised that he does need to follow-up with a transcriptionist for possible ERCP for gastritis. Patient was agreeable with this plan of care and agree with plan of care. All questions and concerns answered by this provider. Repeat evaluation of blood pressure showed 146/1 90s. Patient was discharged home with strict understanding to return to the ED if he has any nausea vomiting, abdominal pain, high blood pressure, shortness of breath, chest pain, etc. Patient agrees with this plan of care. After performing a Medical Screening Examination, I estimate there is LOW risk for ACUTE APPENDICITIS, BOWEL OBSTRUCTION, ACUTE CHOLECYSTITIS, PERFORATED DIVERTICULITIS, INCARCERATED HERNIA, PANCREATITIS, TESTICULAR TORSION or PERFORATED ULCER, thus I consider the discharge disposition reasonable. Also, there is no evidence or peritonitis, sepsis, or toxicity. I have reevaluated this patient multiple times and no significant life threatening changes are noted. The patient and I have discussed the diagnosis and risks, and we agree with discharging home with close follow-up with the understanding that symptoms and presentations can change. We also discussed returning to the Emergency Department immediately if new or worsening symptoms occur. We have discussed the symptoms which are most concerning (e.g., bloody stool, fever, changing or worsening pain, intractable vomiting - standard verbal up date) that necessitate immediate return. After performing a Medical Screening Examination, I estimate there is LOW risk for RUPTURED ESOPHAGUS, PNEUMOTHORAX, PULMONARY EMBOLISM, ACUTE CORONARY SYNDROME, OR THORACIC AORTIC DISSECTION, thus I consider the discharge disposition reasonable. I have reevaluated this patient multiple times and no significant life threatening changes are noted. The patient and I have discussed the diagnosis and risks, and we agree with discharging home with close follow- up. We also discussed returning to the Emergency Department immediately if new or worsening symptoms occur. We have discussed the symptoms which are most concerning (e.g., bloody sputum, worsening pain or shortness of breath) that necessitate immediate return. - Vital Signs Vital signs: Temp Pulse Resp BP Pulse Ox 98.2 F 63 20 146/104 H 99 08/04/18 08:00 08/04/18 08:00 08/04/18 10:55 08/04/18 14:14 08/04/18 10:55 - Laboratory Result Diagrams: 08/04/18 08:55 08/04/18 08:55 Laboratory results interpreted by me: 08/04/18 08/04/18 08/04/18 08:55 08:55 10:43 WBC 16.0 H RBC 5.73 H MCV 73 L MCH 23.7 L RDW 16.1 H Seg Neutrophils % 85.9 H Lymphocytes % 9.3 L Absolute Neutrophils 13.7 H Glucose 118 H Direct Bilirubin 0.5 H ALT 17 L Creatine Kinase 193 H 186 H Urine Protein Urine Ketones Urine Blood 08/04/18 12:10 WBC RBC MCV MCH RDW Seg Neutrophils % Lymphocytes % Absolute Neutrophils Glucose Direct Bilirubin ALT Creatine Kinase Urine Protein 100 H Urine Ketones 20 H Urine Blood SMALL H Discharge - Discharge Clinical Impression: Nausea & vomiting Qualifiers: Vomiting Intractability: intractable Abdominal pain Qualifiers: Abdominal location: epigastric Qualified Code(s): R10.13 - Epigastric pain Hypertension Qualifiers: Hypertension type: essential hypertension Qualified Code(s): I10 - Essential (primary) hypertension Condition: Stable Disposition: HOME, SELF-CARE Instructions: Abdominal Pain ([facility]), Antinausea Medication ([facility]), High Blood Pressure ([facility]), Intravenous (IV) Fluids ([facility]), Vomiting ([facility]) Additional Instructions: Antacid Therapy You have been instructed to start antacid therapy. Antacids directly neutralize stomach acid. This is useful for acid irritation of the esophagus, gastritis, and ulcers. You should take two tablespoons of antacid one hour after each meal and three hours after each meal. If you are not eating, take the antacid every two hours. If you are using a concentrate (such as Maalox TC), use only one tablespoon. Many antacids affect the bowels. The most common problem is diarrhea. In this case, a pure aluminum hydroxide antacid (such as AlternaGel) can be substituted for some or all doses. If the problem is constipation, add a teaspoon of Milk of Magnesia to each dose. Call the doctor if you experience continued diarrhea or constipation, or if you develop lightheadedness, bloody stool or vomitus, severe abdominal pain, or black stool. Abdominal Pain There are many causes of abdominal pain. Pain can mean a serious problem requiring surgery (such as appendicitis). It can also be an innocent problem that goes away on its own (such as a viral infection). Often, time must pass to determine the cause of pain. The physician does not feel that hospitalization is necessary, at present. Things may change within the next 24 hours. Call the doctor or come back for re- examination if any problems occur, such as: (1) Pain that becomes more severe, steady, or becomes concentrated in one specific area. Also, pain that is more severe with movement or coughing. (2) Vomiting that persists or becomes more frequent. (3) Blood in the vomitus, urine, or bowel movements. Blood in the stool may have a tarry or black appearance. (4) Shaking chills or fever greater than 100 degrees F. (5) The abdomen becomes more distended or swollen. (6) Bowel movements cease. (7) Failure to improve as expected. Start antiacid medication daily, follow bland diet. Take antinausea medication as needed. Follow-up with GI doctor for further evaluation for possible further diagnostic evaluation which could include evaluation of gallbladder as well as PCP within 24-48 hours. If you have persistent nausea and vomiting, abd pain, fever, weakenss, etc please return to the ED for evaluation Return immediately for any new or worsening symptoms. Follow up with primary care provider, call tomorrow to make followup appointment. Prescriptions: Omeprazole 40 mg PO DAILY #20 capsule. Promethazine HCl [Phenergan 25 mg Tablet] 1 - 2 tab PO Q6H PRN #15 tablet PRN Reason: Forms: Return to Work Referrals: EDUIN NEWSOME DO [NO LOCAL MD] - Follow up tomorrow LAURA LUCIO MD [ACTIVE STAFF] - Follow up in 3-5 days
[2018-08-04] MEDS ORDERED: ONDANSETRON HCL INJ/PF 4 MG/2 ML SDV IV ONE (08:29)
[2018-08-04] MEDS ORDERED: RINGERS SOLUTION,LACTATED 1,000 ML IV PRN (08:29)
[2018-08-04 09:07] LABS: ABSOLUTE BASOPHILS # (AUTO) 0.1 10^3/uL (0.0-0.2); ABSOLUTE LYMPHOCYTES (AUTO) 1.5 10^3/uL (0.5-4.7); ABSOLUTE MONOCYTES (AUTO) 0.7 10^3/uL (0.1-1.4); ABSOLUTE NEUT (AUTO) 13.7 10^3/uL (1.7-8.2); BASOPHILS % (AUTO) 0.3 % (0-2); EOSINOPHILS % (AUTO) 0.1 % (0-6); HEMATOCRIT 41.6 % (37.9-51.0); HEMOGLOBIN 13.6 g/dL (13.5-17.0); LYMPHOCYTES % (AUTO) 9.3 % (13-45); MEAN CORPUSCULAR HEMOGLOBIN 23.7 pg (27.0-33.4); MEAN CORPUSCULAR HGB CONC 32.7 g/dL (32.0-36.0); MEAN CORPUSCULAR VOLUME 73 fl (80-97); MONOCYTES % (AUTO) 4.4 % (3-13); PLATELET COUNT 375 10^3/uL (150-450); RED BLOOD COUNT 5.73 10^6/uL (4.35-5.55); RED CELL DISTRIBUTION WIDTH 16.1 % (11.5-14.0); SEGMENTED NEUTROPHILS % (AUTO) 85.9 % (42-78); TOTAL CELLS COUNTED % (AUTO) 100 %
[2018-08-04 09:33] LABS: ALANINE AMINOTRANSFERASE 17 U/L (21-72); ALBUMIN 4.9 g/dL (3.5-5.0); ALKALINE PHOSPHATASE 85 U/L (38-126); ANION GAP 12 (5-19); ASPARTATE AMINO TRANSFERASE 22 U/L (17-59); BILIRUBIN,DIRECT 0.5 mg/dL (0.0-0.4); BILIRUBIN,TOTAL 0.9 mg/dL (0.2-1.3); BLOOD UREA NITROGEN 10 mg/dL (7-20); CARBON DIOXIDE 26 mmol/L (22-30); CHLORIDE 104 mmol/L (98-107); CREATINE KINASE 193 U/L (55-170); GLUCOSE 118 mg/dL (75-110); LIPASE 96.4 U/L (23-300); POTASSIUM 3.6 mmol/L (3.6-5.0); SODIUM 141.8 mmol/L (137-145); TOTAL PROTEIN 8.1 g/dL (6.3-8.2)
[2018-08-04] MEDS ORDERED: NORMAL SALINE 500 ML IV PRN (10:01)
[2018-08-04] MEDS ORDERED: MORPHINE SULFATE 10 MG/ML INJ IV ONE (10:29)
[2018-08-04 12:16] LABS: PHOSPHORUS 3.2 mg/dL (2.5-4.5)
--- NOTE | 2018-08-04 12:22 | RADIOLOGY REPORT (SQ) ---
EXAM DESCRIPTION: CT ABD/PELVIS WITH IV ORAL COMPLETED DATE/TIME: 08/04/2018 12:01 pm REASON FOR STUDY: LUE, epigastric pain COMPARISON: None. TECHNIQUE: CT scan of the abdomen and pelvis performed using helical scanning technique with dynamic intravenous contrast injection. No oral contrast. Images reviewed with lung, soft tissue, and bone windows. Reconstructed coronal and sagittal MPR images reviewed. Delayed images for evaluation of the urinary system also acquired. All images stored on PACS. All CT scanners at this facility use dose modulation, iterative reconstruction, and/or weight based d osing when appropriate to reduce radiation dose to as low as reasonably achievable (ALARA). [facility]: Dose Right [facility]: CareDose [facility]: Dose Right [facility]: Teradose 4D [facility]: Triptelligent CONTRAST TYPE AND DOSE: contrast/concentration: Isovue 350.00 mg/ml; Total Contrast Delivered: 86.0 ml; Total Saline Delivered: 69.0 ml RENAL FUNCTION: None required. The patient is less than 50 years old. RADIATION DOSE: CT Rad equipment meets quality standard of care and radiation dose reduction techniq ues were employed. CTDIvol: 5.2 - 7.2 mGy. DLP: 639 mGy-cm.. LIMITATIONS: None. FINDINGS: LOWER CHEST: No significant findings. No nodules or infiltrates. LIVER: Normal size. No masses. No dilated ducts. SPLEEN: Normal size. No focal lesions. PANCREAS: No masses. No significant calcifications. No adjacent inflammation or peripancreatic fluid collections. Pancreatic duct not dilated. GALLBLADDER: No identified stones by CT criteria. No inflammatory changes to suggest cholecystitis. ADRENAL GLANDS: No significant masses or asymmetry. RIGHT KIDNEY AND URETER: No solid masses. No significant calcifications. No hydronephrosis or hyd roureter. LEFT KIDNEY AND URETER: No solid masses. No significant calcifications. No hydronephrosis or hydr oureter. AORTA AND VESSELS: No aneurysm. No dissection. Renal arteries, SMA, celiac without stenosis. RETROPERITONEUM: No retroperitoneal adenopathy, hemorrhage or masses. BOWEL AND PERITONEAL CAVITY: No masses or inflammatory changes. No free fluid or peritoneal masses. APPENDIX: Normal. PELVIS: No mass. No free fluid. Normal bladder. ABDOMINAL WALL: No masses. No hernias. BONES: No significant or acute findings. OTHER: No other significant finding. IMPRESSION: No CT findings to explain acute abdominal pain. TECHNICAL DOCUMENTATION: JOB ID: [id number] Quality ID # [id number]: Final reports with documentation of one or more dose reduction techniques (e.g., Au tomated exposure control, adjustment of the mA and/or kV according to patient size, use of iterative reconstruction technique) 2010 [employer]- All Rights Reserved Reading location - IP/workstation name: [email or web address]
--- NOTE | 2018-08-04 12:23 | RADIOLOGY REPORT (SQ) ---
EXAM DESCRIPTION: CHEST 2 VIEWS COMPLETED DATE/TIME: 08/04/2018 12:12 pm REASON FOR STUDY: LUE, epigastric pain COMPARISON: 07/15/2016. EXAM PARAMETERS: NUMBER OF VIEWS: two views TECHNIQUE: Digital Frontal and Lateral radiographic views of the chest acquired. RADIATION DOSE: NA LIMITATIONS: none FINDINGS: LUNGS AND PLEURA: No opacities, masses or pneumothorax. No pleural effusion. MEDIASTINUM AND HILAR STRUCTURES: No masses or contour abnormalities. HEART AND VASCULAR STRUCTURES: Heart normal size. No evidence for failure. BONES: No acute findings. HARDWARE: None in the chest. OTHER: No other significant finding. IMPRESSION: NO ACUTE RADIOGRAPHIC FINDING IN THE CHEST. TECHNICAL DOCUMENTATION: JOB ID: [id number] [employer]- All Rights Reserved Reading location - IP/workstation name: [email or web address]
[2018-08-04 12:28] LABS: CREATINE KINASE MB 1.46 ng/mL (<4.55)
[2018-08-04 12:30] LABS: TROPONIN I < 0.012 ng/mL
[2018-08-04 12:43] LABS: APPEARANCE,URINE SLIGHTLY-CLOUDY; BILIRUBIN,URINE NEGATIVE (NEGATIVE); COLOR,URINE YELLOW; GLUCOSE, URINE NEGATIVE (NEGATIVE); KETONES,URINE 20 mg/dL (NEGATIVE); LEUKOCYTE ESTERASE,URINE NEGATIVE (NEGATIVE); NITRITE,URINE NEGATIVE (NEGATIVE); PROTEIN,URINE 100 mg/dL (NEGATIVE); URINE SPECIFIC GRAVITY 1.041; UROBILINOGEN,URINE NEGATIVE mg/dL (<2.0)
[2018-08-04] MEDS ORDERED: LISINOPRIL 10 MG TABLET PO ONE (13:27)
[2018-08-04 14:16] VITALS: BP 146/104
--- NOTE | 2018-08-04 21:08 | EKG REPORT ---
SEVERITY:- ABNORMAL ECG - SINUS ARRHYTHMIA, RATE 53-73 CONSIDER LEFT VENTRICULAR HYPERTROPHY : Confirmed by: Jaqui Gonzales MD 04-Aug-2018 21:08:03
--- NOTE | 2018-08-04 21:08 | EKG REPORT ---
SEVERITY:- ABNORMAL ECG - SINUS RHYTHM CONSIDER LEFT VENTRICULAR HYPERTROPHY : Confirmed by: Jaqui Gonzales MD 04-Aug-2018 21:08:07
== END 2018-08-04 14:14 | disposition home or self-care (01) ==
LOC: ER 07:57
DX: R10.13 Epigastric pain (principal); I10 Essential (primary) hypertension; R11.2 Nausea with vomiting, unspecified; R10.9 Unspecified abdominal pain; R10.84 Generalized abdominal pain; R63.0 Anorexia; F17.200 Nicotine dependence, unspecified, uncomplicated
CPT/HCPCS: 93005; 99284; 96361; 96374; 96375; 36415; 82553; 82550; 83690; 83735; 84100; 85025; 80053; 81001; 84484; 71046; 74177; 93010; J2270; J2405; J7040; J7120

== ENCOUNTER 2019-10-05 12:19 | Emergency (ER) | payer SELFPAY ==
--- NOTE | 2019-10-05 12:28 | ER Document Report ---
ED Medical Screen (RME) - General Stated Complaint: COLLAR BONE PAIN Notes: Patient is a 49-year-old -[place] male with a past medical history of hypertension who presents to the emergency department with a chief complaint of swelling and pain to the medial left clavicle that began this morning. He states last night when he went to bed it was fine. He denies any recent injury or illnesses. He denies any fever. States the area is swollen and tender. Denies any drug abuse or penetrating trauma. I have treated and performed a rapid initial assessment of this patient. A comprehensive ED assessment and evaluation of the patient, analysis of test results and completion of medical decision making process will be conducted by additional ED providers. PHYSICAL EXAMINATION: GENERAL: Well-appearing, well-nourished and in no acute distress. A&Ox4. Answers questions appropriately. MUSK: Swollen medial left clavicle that is tender. Questionable fluctuance. Pain with abduction and elevation of the left arm TRAVEL OUTSIDE OF THE [place] IN LAST 30 DAYS: No - Related Data Allergies/Adverse Reactions: fluoxetine HCl [From Prozac] Allergy (Verified 08/03/18 16:05) naproxen [Naproxen] Allergy (Verified 08/03/18 16:05) Past Medical History - Past Medical History Cardiac Medical History: Reports: Hx Hypercholesterolemia, Hx Hypertension Pulmonary Medical History: Denies: Hx Asthma, Hx Bronchitis, Hx COPD Neurological Medical History: Denies: Hx Cerebrovascular Accident Endocrine Medical History: Denies: Hx Diabetes Mellitus Type 2 Renal/ Medical History: Denies: Hx Peritoneal Dialysis GI Medical History: Denies: Hx Gastritis, Hx Gastroesophageal Reflux Disease Musculoskeltal Medical History: Reports Hx Arthritis, Reports Hx Muscle Spasm, Reports Hx Musculoskeletal Deformity, Reports Hx Musculoskeletal Trauma Psychiatric Medical History: Reports: Hx Depression Past Surgical History: Reports: Hx Orthopedic Surgery - L5-S1 fusion in Feb 2012. - Immunizations Immunizations up to date: Yes Hx Diphtheria, Pertussis, Tetanus Vaccination: Yes - last year
--- NOTE | 2019-10-05 12:45 | RADIOLOGY REPORT (SQ) ---
EXAM DESCRIPTION: CLAVICLE LEFT COMPLETED DATE/TIME: 10/05/2019 12:37 pm REASON FOR STUDY: left clavicular pain, swelling COMPARISON: None. NUMBER OF VIEWS: Two views. TECHNIQUE: Frontal and angled images were acquired of the left clavicle. LIMITATIONS: None. FINDINGS: MINERALIZATION: Normal. BONES: No acute fracture or dislocation. No worrisome bone lesions. SOFT TISSUES: No obvious swelling or foreign body. OTHER: Degenerative changes in the AC joint and glenohumeral joint. Subchondral cyst. No acute frac ture. IMPRESSION: Degenerative changes in the AC joint and glenohumeral joint. TECHNICAL DOCUMENTATION: JOB ID: [id number] 2010 [employer]- All Rights Reserved Reading location - IP/workstation name: [email or web address]
[2019-10-05 13:20] LABS: ALBUMIN 4.4 g/dL (3.5-5.0); ALKALINE PHOSPHATASE 69 U/L (38-126); ANION GAP 7 (5-19); ASPARTATE AMINO TRANSFERASE 24 U/L (17-59); BILIRUBIN,DIRECT 0.3 mg/dL (0.0-0.4); BILIRUBIN,TOTAL 0.4 mg/dL (0.2-1.3); BLOOD UREA NITROGEN 11 mg/dL (7-20); CALCIUM 9.6 mg/dL (8.4-10.2); CARBON DIOXIDE 29 mmol/L (22-30); CHLORIDE 102 mmol/L (98-107); GLUCOSE 118 mg/dL (75-110); POTASSIUM 3.9 mmol/L (3.6-5.0)
[2019-10-05 13:21] LABS: TOTAL PROTEIN 8.2 g/dL (6.3-8.2)
[2019-10-05 13:27] LABS: RED BLOOD COUNT 5.49 10^6/uL (4.35-5.55); WHITE BLOOD COUNT 10.2 10^3/uL (4.0-10.5)
[2019-10-05 13:28] LABS: ABSOLUTE EOSINOPHILS # (AUTO) 0.3 10^3/uL (0.0-0.6); ABSOLUTE LYMPHOCYTES (AUTO) 2.5 10^3/uL (0.5-4.7); ABSOLUTE MONOCYTES (AUTO) 0.9 10^3/uL (0.1-1.4); ABSOLUTE NEUT (AUTO) 6.5 10^3/uL (1.7-8.2); BASOPHILS % (AUTO) 0.5 % (0-2); EOSINOPHILS % (AUTO) 2.6 % (0-6); HEMATOCRIT 39.9 % (37.9-51.0); HEMOGLOBIN 13.1 g/dL (13.5-17.0); LYMPHOCYTES % (AUTO) 24.7 % (13-45); MEAN CORPUSCULAR HEMOGLOBIN 23.9 pg (27.0-33.4); MEAN CORPUSCULAR HGB CONC 32.9 g/dL (32.0-36.0); MEAN CORPUSCULAR VOLUME 73 fl (80-97); MONOCYTES % (AUTO) 8.7 % (3-13); PLATELET COUNT 290 10^3/uL (150-450); RED CELL DISTRIBUTION WIDTH 15.6 % (11.5-14.0); SEGMENTED NEUTROPHILS % (AUTO) 63.5 % (42-78); TOTAL CELLS COUNTED % (AUTO) 100 %
[2019-10-05 13:29] LABS: ABSOLUTE BASOPHILS # (AUTO) 0.1 10^3/uL (0.0-0.2)
--- NOTE | 2019-10-05 13:55 | ER Document Report ---
ED Extremity Problem, Upper - General Chief Complaint: Shoulder Pain Stated Complaint: COLLAR BONE PAIN Primary Care Provider: [facility] [Provider Group] - Follow up as needed Mode of Arrival: Ambulatory Information source: Patient Notes: 49-year-old male presents to ED for complaint of pain to the medial left clavicle that began this morning. He states he went to bed last night and he was fine has not had any new injuries. He denies any fevers chills or any other complaints. The area is slightly swollen and tender to palpation. He does have a history of high blood pressure. TRAVEL OUTSIDE OF THE [place] IN LAST 30 DAYS: No - HPI Patient complains to provider of: Pain, Swelling, Left, Clavicle Onset: This morning Recent injury: No Quality of pain: Sharp Pain Level: 5 Associated symptoms: None Relieved by: Nothing Similar symptoms previously: No Recently seen / treated by doctor: No - Related Data Allergies/Adverse Reactions: fluoxetine HCl [From Prozac] Allergy (Verified 08/03/18 16:05) naproxen [Naproxen] Allergy (Verified 08/03/18 16:05) Home Medications: lisinporil Past Medical History - General Information source: Patient - Social History Smoking Status: Current Every Day Smoker Cigarette use (# per day): Yes - 3 cigarettes a day Frequency of alcohol use: Social Drug Abuse: None Family History: Reviewed & Not Pertinent, Arthritis, CAD, CVA, DM, Hyperlipidemia, Hypertension Patient has suicidal ideation: No Patient has homicidal ideation: No - Past Medical History Cardiac Medical History: Reports: Hx Hypercholesterolemia, Hx Hypertension Pulmonary Medical History: Reports: None EENT Medical History: Reports: None Neurological Medical History: Reports: None Endocrine Medical History: Reports: None Renal/ Medical History: Reports: None Malignancy Medical History: Reports None GI Medical History: Reports: None Musculoskeletal Medical History: Reports Hx Arthritis, Reports Hx Muscle Spasm, Reports Hx Musculoskeletal Deformity, Reports Hx Musculoskeletal Trauma Skin Medical History: Reports None Psychiatric Medical History: Reports: Hx Depression Traumatic Medical History: Reports: None Infectious Medical History: Reports: None Past Surgical History: Reports: Hx Orthopedic Surgery - L5-S1 fusion in Feb 2012. - Immunizations Immunizations up to date: Yes Hx Diphtheria, Pertussis, Tetanus Vaccination: Yes - last year Review of Systems - Review of Systems Constitutional: No symptoms reported EENT: No symptoms reported Cardiovascular: No symptoms reported Respiratory: No symptoms reported Gastrointestinal: No symptoms reported Genitourinary: No symptoms reported Male Genitourinary: No symptoms reported Musculoskeletal: Other - Clavicle pain and tenderness minimal swelling medial aspect Skin: No symptoms reported Hematologic/Lymphatic: No symptoms reported Neurological/Psychological: No symptoms reported -: Yes All other systems reviewed and negative Physical Exam - Vital signs Vitals: Temp Pulse Resp BP Pulse Ox 98.2 F 81 14 167/110 H 99 10/05/19 12:23 10/05/19 12:23 10/05/19 12:23 10/05/19 12:23 10/05/19 12:23 Interpretation: Normal - General General appearance: Appears well, Alert - HEENT Head: Normocephalic, Atraumatic Eyes: Normal Pupils: PERRL - Respiratory Respiratory status: No respiratory distress Chest status: Tender - Medial aspect of the left clavicle with mild swelling to the area no injury, Pain on movement. No: Ecchymosis, Pain with cough, Pain with deep breathing Breath sounds: Normal Chest palpation: Normal - Cardiovascular Rhythm: Regular Heart sounds: Normal auscultation Murmur: No - Abdominal Inspection: Normal Distension: No distension Bowel sounds: Normal Tenderness: Nontender Organomegaly: No organomegaly - Back Back: Normal, Nontender - Extremities General upper extremity: Normal inspection, Nontender, Normal color, Normal ROM, Normal temperature General lower extremity: Normal inspection, Nontender, Normal color, Normal ROM, Normal temperature, Normal weight bearing. No: Tristan's sign - Neurological Neuro grossly intact: Yes Cognition: Normal Orientation: AAOx4 [place] Coma Scale Eye Opening: Spontaneous Phi Coma Scale Verbal: Oriented Phi Coma Scale Motor: Obeys Commands Phi Coma Scale Total: 15 Speech: Normal Motor strength normal: LUE, RUE, LLE, RLE Sensory: Normal - Psychological Associated symptoms: Normal affect, Normal mood - Skin Skin Temperature: Warm Skin Moisture: Dry Skin Color: Normal Course - Vital Signs Vital signs: Temp Pulse Resp BP Pulse Ox 98.2 F 81 14 156/90 H 99 10/05/19 12:23 10/05/19 12:23 10/05/19 12:23 10/05/19 13:58 10/05/19 12:23 - Laboratory Result Diagrams: 10/05/19 12:30 10/05/19 12:30 Laboratory results interpreted by me: 10/05/19 10/05/19 12:30 12:30 Hgb 13.1 L MCV 73 L MCH 23.9 L RDW 15.6 H Glucose 118 H - Diagnostic Test Radiology reviewed: Image reviewed, Reports reviewed Discharge - Discharge Clinical Impression: Pain of left clavicle Condition: Stable Disposition: HOME, SELF-CARE Additional Instructions: You were seen today for left clavicle pain and swelling. There is no acute injuries noted on your x-rays. Your labs are within normal limits there is no signs of any type of infection. There is no redness or inflammation to the area that is tender. You do have degenerative changes to your clavicle. Please follow-up with your primary care doctor to schedule follow-up. FOLLOW-UP CARE: If you have been referred to a physician for follow-up care, call the physicians office for an appointment as you were instructed or within the next two days. If you experience worsening or a significant change in your symptoms, notify the physician immediately or return to the Emergency Department at any time for re-evaluation. Forms: Elevated Blood Pressure, Smoking Cessation Education Referrals: [facility] [Provider Group] - Follow up as needed
[2019-10-05 13:59] VITALS: BP 156/90
[2019-10-05] MEDS ORDERED: IBUPROFEN 600 MG TABLET PO ONE (14:05)
== END 2019-10-05 14:23 | disposition home or self-care (01) ==
LOC: ER 12:19
DX: M25.512 Pain in left shoulder (principal); M79.89 Other specified soft tissue disorders; I10 Essential (primary) hypertension; Z79.899 Other long term (current) drug therapy; F17.210 Nicotine dependence, cigarettes, uncomplicated; Z88.8 Allergy status to other drugs, medicaments and biological substances
CPT/HCPCS: 36415; 80053; 85025; 99283

== ENCOUNTER 2019-12-27 13:52 | Emergency (ER) | payer SELFPAY ==
[2019-12-27 14:28] VITALS: BP 154/103
--- NOTE | 2019-12-27 15:53 | RADIOLOGY REPORT (SQ) ---
EXAM DESCRIPTION: HAND RIGHT 3 VIEWS; WRIST RIGHT 3 VIEWS IMAGES COMPLETED DATE/TIME: 12/27/2019 3:17 pm REASON FOR STUDY: hand/wrist pain; right wrist/hand pain COMPARISON: None. EXAM PARAMETERS: NUMBER OF VIEWS: Three views right wrist, three views right hand. TECHNIQUE: AP, lateral and oblique radiographic images acquired of the right wrist and hand. LIMITATIONS: None. FINDINGS: MINERALIZATION: Normal. BONES: No acute fracture or dislocation. No worrisome bone lesions. JOINTS: Mild radiocarpal and intercarpal joint space narrowing and bony spurring. Mild 2nd and 3rd M CP joint narrowing. No bulky bony spurring. SOFT TISSUES: No soft tissue swelling. No foreign body. OTHER: No other significant finding. IMPRESSION: No acute fracture or malalignment over the right wrist or hand. TECHNICAL DOCUMENTATION: JOB ID: [id number] 2010 [employer]- All Rights Reserved Reading location - IP/workstation name: [email or web address]
--- NOTE | 2019-12-27 15:53 | RADIOLOGY REPORT (SQ) ---
EXAM DESCRIPTION: HAND RIGHT 3 VIEWS; WRIST RIGHT 3 VIEWS IMAGES COMPLETED DATE/TIME: 12/27/2019 3:17 pm REASON FOR STUDY: hand/wrist pain; right wrist/hand pain COMPARISON: None. EXAM PARAMETERS: NUMBER OF VIEWS: Three views right wrist, three views right hand. TECHNIQUE: AP, lateral and oblique radiographic images acquired of the right wrist and hand. LIMITATIONS: None. FINDINGS: MINERALIZATION: Normal. BONES: No acute fracture or dislocation. No worrisome bone lesions. JOINTS: Mild radiocarpal and intercarpal joint space narrowing and bony spurring. Mild 2nd and 3rd M CP joint narrowing. No bulky bony spurring. SOFT TISSUES: No soft tissue swelling. No foreign body. OTHER: No other significant finding. IMPRESSION: No acute fracture or malalignment over the right wrist or hand. TECHNICAL DOCUMENTATION: JOB ID: [id number] 2010 [employer]- All Rights Reserved Reading location - IP/workstation name: [email or web address]
--- NOTE | 2019-12-27 16:29 | ER Document Report ---
HPI - HPI Time Seen by Provider: 12/27/19 14:56 Pain Level: 2 Context: Patient is a 49-year-old male who presents to the emergency department with a chief complaint of right arm pain and numbness. His pain starts in the middle of his right hand and radiates up to his elbow. Patient is right-handed. Patient states that he has been doing repetitive motions. - ROS Systems Reviewed and Negative: Yes All other systems reviewed and negative - CONSTITUTIONAL Constitutional: DENIES: Fever - NEURO Neurology: DENIES: Headache, Weakness - CARDIOVASCULAR Cardiovascular: DENIES: Chest pain - REPRODUCTIVE Reproductive: DENIES: : - MUSCULOSKELETAL Musculoskeletal: REPORTS: Extremity pain - Right hand. DENIES: Back Pain, Neck Pain, Swelling - DERM Skin Color: Normal Skin Problems: None Past Medical History - Social History Smoking Status: Unknown if Ever Smoked Family History: Reviewed & Not Pertinent, Arthritis, CAD, CVA, DM, Hyperlipidemia, Hypertension Patient has homicidal ideation: No - Past Medical History Cardiac Medical History: Reports: Hx Hypercholesterolemia, Hx Hypertension Pulmonary Medical History: Denies: Hx Asthma, Hx Bronchitis, Hx COPD Neurological Medical History: Denies: Hx Cerebrovascular Accident Endocrine Medical History: Denies: Hx Diabetes Mellitus Type 2 Renal/ Medical History: Denies: Hx Peritoneal Dialysis GI Medical History: Denies: Hx Gastritis, Hx Gastroesophageal Reflux Disease Musculoskeletal Medical History: Reports Hx Arthritis, Reports Hx Muscle Spasm, Reports Hx Musculoskeletal Deformity, Reports Hx Musculoskeletal Trauma Psychiatric Medical History: Reports: Hx Depression Past Surgical History: Reports: Hx Orthopedic Surgery - L5-S1 fusion in Feb 2012. - Immunizations Immunizations up to date: Yes Hx Diphtheria, Pertussis, Tetanus Vaccination: Yes - last year Vertical Provider Document - CONSTITUTIONAL Agree With Documented VS: Yes Exam Limitations: No Limitations General Appearance: No Apparent Distress - INFECTION CONTROL TRAVEL OUTSIDE OF THE [place] IN LAST 30 DAYS: No - NECK Neck: Normal Inspection - RESPIRATORY Respiratory: No Respiratory Distress - CARDIOVASCULAR Cardiovascular: Regular Rate Pulses: Normal: Radial - MUSCULOSKELETAL/EXTREMETIES Musculoskeletal/Extremeties: FROM, Tender - Distal handed MCP joint on second and third fingers, No Edema. negative: Eccymosis - NEURO Level of Consciousness: Awake, Alert, Appropriate Motor/Sensory: No Motor Deficit, No Sensory Deficit - DERM Integumentary: Warm, Dry, No Rash Course - Re-evaluation Re-evalutation: 12/27/19 Patient hand x-ray shows radiocarpal and intercarpal joint space narrowing and a bony spur noted. There is also second and third MCP joint narrowing, which is most likely the cause of his pain. He also has symptoms of carpal tunnel syndrome. Patient has a wrist splint at home. I offered him a new splint and he declined. He will follow-up with orthopedics. Radial pulse 2+. No vascular compromise noted. Capillary refill less than 3 seconds. Follow-up precautions were given. Verbal discharge instructions were given to the patient. They verbalized understanding. They are stable for discharge. - Vital Signs Vital signs: Temp Pulse Resp BP Pulse Ox 99.1 F 86 16 154/103 H 98 12/27/19 14:26 12/27/19 14:26 12/27/19 14:26 12/27/19 14:26 12/27/19 14:26 Discharge - Discharge Clinical Impression: Right wrist pain Condition: Stable Disposition: HOME, SELF-CARE Additional Instructions: You were seen today in the emergency department for right hand and wrist pain. Please continue to use the splint that you were using. Start naproxen. Stop taking ibuprofen. Continue Tylenol 1000 mg every 6 hours for your pain. Follow-up with orthopedics, as you have a small spur in your bone where you are having pain. You also have some arthritis. I recommend that you go see physical therapy when you are able to. Prescriptions: Ibuprofen [Motrin 800 mg Tablet] 800 mg PO Q8H PRN #20 tab PRN Reason:
== END 2019-12-27 14:57 | disposition home or self-care (01) ==
LOC: ER 13:52
DX: M25.531 Pain in right wrist (principal); M79.641 Pain in right hand; R20.0 Anesthesia of skin; E78.00 Pure hypercholesterolemia, unspecified; I10 Essential (primary) hypertension; Z98.1 Arthrodesis status
CPT/HCPCS: 99283

== ENCOUNTER 2020-03-19 15:00 | Emergency (ER) | payer SELFPAY ==
[2020-03-19 15:07] VITALS: BP 153/102
== END 2020-03-19 15:12 | disposition left against medical advice (07) ==
LOC: ER 15:00
DX: Z53.21 Procedure and treatment not carried out due to patient leaving prior to being seen by health care provider (principal)

== ENCOUNTER 2020-04-24 02:16 | Emergency (ER) | payer BC ==
[2020-04-24] MEDS ORDERED: ONDANSETRON 4 MG TAB.RAPDIS PO ONE (04:48)
[2020-04-24 06:39] LABS: ABSOLUTE BASOPHILS # (AUTO) 0.1 10^3/uL (0.0-0.2); ABSOLUTE EOSINOPHILS # (AUTO) 0.2 10^3/uL (0.0-0.6); ABSOLUTE LYMPHOCYTES (AUTO) 1.4 10^3/uL (0.5-4.7); ABSOLUTE MONOCYTES (AUTO) 0.5 10^3/uL (0.1-1.4); BASOPHILS % (AUTO) 0.6 % (0-2); EOSINOPHILS % (AUTO) 1.7 % (0-6); HEMATOCRIT 40.4 % (37.9-51.0); HEMOGLOBIN 13.6 g/dL (13.5-17.0); LYMPHOCYTES % (AUTO) 12.8 % (13-45); MEAN CORPUSCULAR HEMOGLOBIN 23.4 pg (27.0-33.4); MEAN CORPUSCULAR HGB CONC 33.8 g/dL (32.0-36.0); MEAN CORPUSCULAR VOLUME 69 fl (80-97); MONOCYTES % (AUTO) 4.2 % (3-13); PLATELET COUNT 283 10^3/uL (150-450); RED BLOOD COUNT 5.83 10^6/uL (4.35-5.55); RED CELL DISTRIBUTION WIDTH 16.5 % (11.5-14.0); SEGMENTED NEUTROPHILS % (AUTO) 80.7 % (42-78); TOTAL CELLS COUNTED % (AUTO) 100 %; WHITE BLOOD COUNT 11.1 10^3/uL (4.0-10.5)
[2020-04-24 06:50] LABS: ALBUMIN 4.8 g/dL (3.5-5.0); ALKALINE PHOSPHATASE 84 U/L (38-126); ANION GAP 11 (5-19); ASPARTATE AMINO TRANSFERASE 30 U/L (17-59); BILIRUBIN,DIRECT 0.3 mg/dL (0.0-0.4); BILIRUBIN,TOTAL 0.6 mg/dL (0.2-1.3); BLOOD UREA NITROGEN 16 mg/dL (7-20); CALCIUM 10.1 mg/dL (8.4-10.2); CARBON DIOXIDE 28 mmol/L (22-30); CHLORIDE 105 mmol/L (98-107); GLUCOSE 118 mg/dL (75-110); POTASSIUM 4.2 mmol/L (3.6-5.0); TOTAL PROTEIN 8.4 g/dL (6.3-8.2)
[2020-04-24] MEDS ORDERED: NORMAL SALINE 1000 ML 1,000 ML IV ONE ×2 (07:00→10:32)
[2020-04-24] MEDS ORDERED: ONDANSETRON HCL INJ/PF 4 MG/2 ML SDV IV ONE ×2 (07:00→14:01)
[2020-04-24] MEDS ORDERED: FENTANYL CITRATE INJ/PF 100 MCG/2 ML AMPUL IV ONE ×2 (07:01→10:32)
--- NOTE | 2020-04-24 07:21 | ER Document Report ---
Entered by KAREN HENDERSON SCRIBE 04/24/20 0704 Acting as scribe for:MIGUELITO CARDENAS MD ED GI/ - General Chief Complaint: Nausea/Vomiting Stated Complaint: NAUSEA,VOMITING Time Seen by Provider: 04/24/20 06:28 Mode of Arrival: Ambulatory Information source: Patient Notes: This 49-year-old male patient presents to the emergency department today with complaints of "a lot" of vomiting which began last night around 10:00 PM. Patient states he ate tacos last night and felt ill shortly after. Patient has had food poisoning in the past and his symptoms today feel similar to food poisoning. Patient has had diffuse abdominal cramping but no diarrhea. TRAVEL OUTSIDE OF THE [place] 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 - Immunizations Immunizations up to date: Yes Hx Diphtheria, Pertussis, Tetanus Vaccination: Yes - last year Review of Systems - Review of Systems Constitutional: No symptoms reported EENT: No symptoms reported Cardiovascular: No symptoms reported Respiratory: No symptoms reported Gastrointestinal: See HPI, Abdominal pain, Vomiting. denies: Diarrhea Genitourinary: No symptoms reported Male Genitourinary: No symptoms reported Musculoskeletal: No symptoms reported Skin: No symptoms reported Hematologic/Lymphatic: No symptoms reported Neurological/Psychological: No symptoms reported -: Yes All other systems reviewed and negative Physical Exam - Vital signs Vitals: Temp Pulse Resp BP Pulse Ox 98.0 F 90 18 166/106 H 97 04/24/20 02:24 04/24/20 02:24 04/24/20 02:24 04/24/20 02:24 04/24/20 02:24 - Notes Notes: Physical Exam: General: Alert, appears uncomfortable. HEENT: Normocephalic. Atraumatic. PERRL. Extraocular movements intact. Oropharynx clear. Dry mucous membranes. Neck: Supple. Non-tender. Respiratory: No respiratory distress. Clear and equal breath sounds bilaterally. Cardiovascular: Slightly tachycardic, regular rhythm. Abdominal: Mild diffuse abdominal tenderness to palpation. No distension. Normal Bowel Sounds. Back: No gross abnormalities. Extremities: Moves all four extremities. Upper extremities: Normal inspection. Normal ROM. Lower extremities: Normal inspection. No edema. Normal ROM. Neurological: Normal cognition. AAOx4. Normal speech. Psychological: Normal affect. Normal Mood. Skin: Warm. Dry. Normal color. Course - Re-evaluation Re-evalutation: 04/24/20 10:33 At this point patient states she is still nauseous and having severe diffuse abdominal pain. He has had Benadryl 25 mg IV, Haldol 5 mg IV, Zofran 8 mg IV twice, and fentanyl 25 mg IV. He received additional pain medications, additional fluids, and will do a CT scan of the abdomen pelvis. 04/24/20 13:59 CT scan of the abdomen pelvis with IV and oral contrast is unremarkable. This was reviewed with the patient. He states he still has some nauseousness. Explained to him that this may be a viral GI bug or food poisoning but due to having no diarrhea it is unlikely to be a food poisoning event. - Vital Signs Vital signs: Temp Pulse Resp BP Pulse Ox 98.3 F 58 L 14 167/92 H 100 04/24/20 09:48 04/24/20 09:48 04/24/20 09:48 04/24/20 09:48 04/24/20 09:48 - Laboratory Result Diagrams: 04/24/20 06:05 04/24/20 06:05 Laboratory results interpreted by me: 04/24/20 04/24/20 04/24/20 06:05 06:05 08:18 WBC 11.1 H RBC 5.83 H MCV 69 L MCH 23.4 L RDW 16.5 H Lymph % (Auto) 12.8 L Absolute Neuts (auto) 9.0 H Seg Neutrophils % 80.7 H Glucose 118 H Total Protein 8.4 H Urine Protein >=500 H Urine Ketones 20 H Urine Blood SMALL H - Diagnostic Test Radiology reviewed: Image reviewed, Reports reviewed - IV and oral contrast CT scan of the abdomen pelvis is unremarkable. Discharge - Discharge Clinical Impression: Nausea & vomiting Qualifiers: Vomiting type: unspecified Vomiting Intractability: non-intractable Qualified Code(s): R11.2 - Nausea with vomiting, unspecified Abdominal pain Qualifiers: Abdominal location: generalized Qualified Code(s): R10.84 - Generalized abdominal pain Condition: Stable Disposition: HOME, SELF-CARE Additional Instructions: Abdominal Pain There are many causes of abdominal pain. Pain can mean a serious problem requiring surgery (such as appendicitis). It can also be an innocent problem that goes away on its own (such as a viral infection). Often, time must pass to determine the cause of pain. The physician does not feel that hospitalization is necessary, at present. Things may change within the next 24 hours. Call the doctor or come back for re- examination if any problems occur, such as: (1) Pain that becomes more severe, steady, or becomes concentrated in one specific area. Also, pain that is more severe with movement or coughing. (2) Vomiting that persists or becomes more frequent. (3) Blood in the vomitus, urine, or bowel movements. Blood in the stool may have a tarry or black appearance. (4) Shaking chills or fever greater than 100 degrees F. (5) The abdomen becomes more distended or swollen. (6) Bowel movements cease. (7) Failure to improve as expected. Nausea or Vomiting, Nonspecific Vomiting (or nausea without vomiting) can be caused by many different problems. Of course, it can mean that something's wrong with the stomach, such as "stomach flu," ulcers, or inflammation. But it can also be a symptom of a problem that has nothing to do with the stomach or intestines. Vomiting is common with severe headaches, earaches, and tonsillitis. We see it with pneumonia or heart attacks. Drugs can cause nausea. Many abdominal problems cause vomiting; for example, gallstones, kidney stones, pancreatitis, and intestinal obstruction (blocked bowels). In most cases, curing the vomiting depends on fixing the problem that caused it. For temporary relief, we may use an anti-nausea medicine. For home use, we can prescribe suppositories, chewable pills, pills that dissolve in the mouth, or liquid anti-nausea drugs. If the vomiting seems to be caused by a problem in the stomach, acid-suppressing drugs may be prescribed as well. It's important to avoid dehydration. Sip clear liquids. Take increasing amounts of fluid over the first 24 hours. Then start small amounts of bland foods (such as dry toast, applesauce, mashed potato). Avoid aspirin, tobacco, and alcohol. Gradually resume your usual diet. If the vomiting worsens, if the problem that's making you vomit worsens, or if there's evidence of bleeding in the stomach (such as black, tarry stool, bloody or black vomit, or lightheadedness), you should return immediately. Call your doctor if you aren't improved in 24 to 36 hours. Take the medication as prescribed for nauseousness. Drink small sips of cool clear liquids. Follow-up with a local medical doctor if not improving. RETURN TO THE EMERGENCY ROOM IF ANY NEW OR WORSENING SYMPTOMS. Prescriptions: Metoclopramide HCl [Reglan 10 mg Tablet] 10 mg PO ASDIR PRN #15 tablet PRN Reason: I personally performed the services described in the documentation, reviewed and edited the documentation which was dictated to the scribe in my presence, and it accurately records my words and actions.
[2020-04-24] MEDS ORDERED: DIPHENHYDRAMINE HCL 50 MG/ML VIAL IV ONE (08:06)
[2020-04-24] MEDS ORDERED: HALOPERIDOL LACTATE INJ 5 MG/1 ML VIAL IV ONE (08:06)
[2020-04-24] MEDS ORDERED: DEXTROSE 5%-LACTATED RINGERS 1,000 ML IV ONE (08:07)
[2020-04-24 08:41] LABS: APPEARANCE,URINE SLIGHTLY-CLOUDY; BILIRUBIN,URINE NEGATIVE (NEGATIVE); COLOR,URINE YELLOW; GLUCOSE, URINE NEGATIVE (NEGATIVE); KETONES,URINE 20 mg/dL (NEGATIVE); LEUKOCYTE ESTERASE,URINE NEGATIVE (NEGATIVE); NITRITE,URINE NEGATIVE (NEGATIVE); PROTEIN,URINE >=500 mg/dL (NEGATIVE); URINE SPECIFIC GRAVITY 1.027; UROBILINOGEN,URINE NEGATIVE mg/dL (<2.0)
[2020-04-24 08:55] LABS: URINE AMPHETAMINES SCREEN NEGATIVE; URINE BARBITURATES SCREEN NEGATIVE; URINE BENZODIAZEPINES SCREEN NEGATIVE; URINE COCAINE SCREEN NEGATIVE; URINE MARIJUANA (THC) SCREEN NEGATIVE; URINE METHADONE SCREEN NEGATIVE; URINE PHENCYCLIDINE SCREEN NEGATIVE
--- NOTE | 2020-04-24 13:28 | RADIOLOGY REPORT (SQ) ---
EXAM DESCRIPTION: CT ABD/PELVIS WITH IV ORAL IMAGES COMPLETED DATE/TIME: 04/24/2020 1:15 pm REASON FOR STUDY: Nausea vomiting abdominal pain COMPARISON: 08/04/2018 TECHNIQUE: CT scan of the abdomen and pelvis performed using helical scanning technique with dynamic intravenous contrast injection. No oral contrast. Images reviewed with lung, soft tissue, and bone windows. Reconstructed coronal and sagittal MPR images reviewed. Delayed images for evaluation of the urinary system also acquired. All images stored on PACS. All CT scanners at this facility use dose modulation, iterative reconstruction, and/or weight based d osing when appropriate to reduce radiation dose to as low as reasonably achievable (ALARA). [facility]: Dose Right [facility]: CareDose [facility]: Dose Right [facility]: Teradose 4D [facility]: Genemation CONTRAST TYPE AND DOSE: contrast/concentration: Isovue 350.00 mmol/ml; Total Contrast Delivered: 82. 0 ml; Total Saline Delivered: 34.8 ml RENAL FUNCTION: BUN 16, creatinine 0.97 RADIATION DOSE: CT Rad equipment meets quality standard of care and radiation dose reduction techniq ues were employed. CTDIvol: 5.1 - 6.8 mGy. DLP: 638 mGy-cm.. LIMITATIONS: None. FINDINGS: LOWER CHEST: No significant findings. No nodules or infiltrates. LIVER: Normal size. No masses. No dilated ducts. SPLEEN: Normal size. No focal lesions. PANCREAS: No masses. No significant calcifications. No adjacent inflammation or peripancreatic fluid collections. Pancreatic duct not dilated. GALLBLADDER: No identified stones by CT criteria. No inflammatory changes to suggest cholecystitis. ADRENAL GLANDS: No significant masses or asymmetry. RIGHT KIDNEY AND URETER: No solid masses. No significant calcifications. No hydronephrosis or hyd roureter. LEFT KIDNEY AND URETER: No solid masses. No significant calcifications. No hydronephrosis or hydr oureter. AORTA AND VESSELS: No aneurysm. No dissection. Renal arteries, SMA, celiac without stenosis. RETROPERITONEUM: No retroperitoneal adenopathy, hemorrhage or masses. BOWEL AND PERITONEAL CAVITY: No masses or inflammatory changes. No free fluid or peritoneal masses. APPENDIX: Normal. PELVIS: No mass. No free fluid. Normal bladder. ABDOMINAL WALL: No masses. No hernias. BONES: Disc degenerative disease throughout the lumbar spine most marked at L4-L5 and L5-S1. Postsur gical changes of 5 1 as well. OTHER: No other significant finding. IMPRESSION: No acute findings in the abdomen or pelvis to explain the patient's diffuse abdominal pa in. TECHNICAL DOCUMENTATION: JOB ID: [id number] Quality ID # [id number]: Final reports with documentation of one or more dose reduction techniques (e.g., Au tomated exposure control, adjustment of the mA and/or kV according to patient size, use of iterative reconstruction technique) 2010 [employer]- All Rights Reserved Reading location - IP/workstation name: [email or web address]
[2020-04-24 15:01] VITALS: BP 168/90
== END 2020-04-24 14:59 | disposition home or self-care (01) ==
LOC: ER 02:16
DX: R11.2 Nausea with vomiting, unspecified (principal); R10.84 Generalized abdominal pain; R10.817 Generalized abdominal tenderness; F17.210 Nicotine dependence, cigarettes, uncomplicated; I10 Essential (primary) hypertension; Z88.8 Allergy status to other drugs, medicaments and biological substances
CPT/HCPCS: 96376; 99285; 96361; 96374; 96375; 36415; 85025; 80053; 81001; 80307; 74177; J1200; S0119; J3010; J1630; J2405; J7121; J7030